=== PATIENT | female | born 1945 | race Caucasian/White ===

== ENCOUNTER 2019-09-01 08:01 | Emergency (ER) | payer MEDICARE, MEDICAID, SELFPAY ==
[2019-09-01 08:03] VITALS: BP 145/86; PULSE 80; RESP 16; TEMP 36.4; O2SAT 97; BMI 24.7
--- NOTE | 2019-09-01 08:11 | ED_ITS ---
Entered by [id number], acting as scribe for Timmy Gonzalez DO Sep 01, 2019 08:01 HPI - Fall General: Chief Complaint: Fall Stated Complaint: FALL, RIGHT RIB PAIN Time Seen by Provider: 09/01/19 08:04 History of Present Illness: Associated symptoms-after fall: Reports chest pain Review of Systems General: Reports: 10 or more systems reviewed and unremarkable except in HPI and below Card: Reports: chest pain Resp: Denies: shortness of breath or productive cough PFSH ED PFSH: Statuses (acute, chronic, etc) shown below reflect problem list status as previously entered and may not be historically accurate Social History Smoking and tobacco status: never smoked Physical Exam Const: COMMON NORMALS: no apparent distress, average body habitus, oriented x3, no limitations, healthy appearing and alert Neck/C-Spine: COMMON NORMALS: no JVD Chest: CHEST: Yes symmetrical chest wall rise, No crepitus and Yes localized rib tenderness with anteroposterior compression Resp: COMMON NORMALS: normal respiratory effort, no retractions and no use of accessory muscles Cardio: COMMON NORMALS: no JVD, regular rate and regular rhythm RATE: regular rate RHYTHM: regular rhythm GI: COMMON NORMALS: normal to inspection, nondistended, normoactive bowel sounds Extremity: COMMON NORMALS: normal to inspection Neuro: COMMON NORMALS: oriented x3 SENSORIUM/ORIENTATION: Yes alert Skin: COMMON NORMALS: no rashes or lesions noted and no wounds GENERAL SKIN EXAM: no rashes or lesions noted Course Vital Signs: Vital signs: Vital Signs Temperature 97.6 F 09/01/19 08:03 Pulse Rate 80 09/01/19 08:03 Respiratory Rate 16 09/01/19 08:03 Blood Pressure 145/86 09/01/19 08:03 Pulse Oximetry 97 09/01/19 08:03 Discharge Plan Discharge Patient Disposition: Home, Self-Care Clinical Impression: Sprain of ribs Qualifiers: Encounter type: initial encounter Qualified Code(s): S23.41XA - Sprain of ribs, initial encounter Condition: Stable Prescriptions: New tramadol 50 mg tablet 50 mg PO Q8H PRN (Reason: pain) Qty: 20 RF: 0 No Action celecoxib 200 mg capsule 200 mg PO BID RF: 0 sertraline 100 mg tablet 100 mg PO DAILY RF: 0 clopidogrel 75 mg tablet 75 mg PO DAILY RF: 0 levothyroxine 25 mcg tablet See Rx Instructions .ROUTE .COMPLEX RF: 0 raloxifene 60 mg tablet 60 mg PO DAILY RF: 0 rosuvastatin 20 mg tablet 20 mg PO DAILY RF: 0 Toviaz 4 mg tablet extended release 24 hr 4 mg PO DAILY RF: 0 Discharge Orders: Discharge Order (Routine); Ordered 09/01/19 Ordered By: Timmy Gonzalez Referrals: Gordo Enciso MD [Family Provider] - Coding Level of Care Code ED 4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
--- NOTE | 2019-09-01 08:17 | XR_ITS ---
WS: [id number] RIBS RIGHT WITH CHEST TECHNIQUE: 3 views of the right ribs with PA chest CLINICAL INFORMATION: fall COMPARISON: None. FINDINGS: Right ribs are normal in appearance. Slight atelectasis right lung base. No visualized right rib frac tures. XR/XR ribs RT mn 3V w CXR1V [id number] IMPRESSION: No visualized right rib fractures.
--- NOTE | 2019-09-01 08:33 | W.ED.FALL ---
HPI - Fall General: Chief Complaint: Fall Stated Complaint: FALL, RIGHT RIB PAIN Time Seen by Provider: 09/01/19 08:04 Review of Systems General: Reports: 10 or more systems reviewed and unremarkable except in HPI and below PFSH ED PFSH: Statuses (acute, chronic, etc) shown below reflect problem list status as previously entered and may not be historically accurate Social History Smoking and tobacco status: never smoked Physical Exam Const: COMMON NORMALS: no apparent distress, oriented x3, no limitations, alert and well nourished Neck/C-Spine: COMMON NORMALS: no JVD Resp: COMMON NORMALS: normal respiratory effort, no retractions and clear to auscultation bilaterally AUSCULTATION: clear to auscultation bilaterally Cardio: COMMON NORMALS: no JVD, regular rate and regular rhythm RATE: regular rate RHYTHM: regular rhythm GI: COMMON NORMALS: normal to inspection, nondistended, normoactive bowel sounds Extremity: COMMON NORMALS: normal to inspection, full ROM and normal capillary refill Neuro: COMMON NORMALS: oriented x3 SENSORIUM/ORIENTATION: Yes alert Skin: COMMON NORMALS: no rashes or lesions noted and no wounds GENERAL SKIN EXAM: no rashes or lesions noted Course Vital Signs: Vital signs: Vital Signs Temperature 97.6 F 09/01/19 08:03 Pulse Rate 80 09/01/19 08:03 Respiratory Rate 16 09/01/19 08:03 Blood Pressure 145/86 09/01/19 08:03 Pulse Oximetry 97 09/01/19 08:03 MDM - Fall Imaging Data^: CXR: My impression: no evidence of rib rx or pneumothorax Discharge Plan Discharge Patient Disposition: Home, Self-Care Clinical Impression: Sprain of ribs Qualifiers: Encounter type: initial encounter Qualified Code(s): S23.41XA - Sprain of ribs, initial encounter Condition: Stable Prescriptions: New tramadol 50 mg tablet 50 mg PO Q8H PRN (Reason: pain) Qty: 20 RF: 0 Discharge Orders: Discharge Order (Routine); Ordered 09/01/19 Ordered By: Timmy Gonzalez Referrals: Gordo Enciso MD [Family Provider] - Coding Level of Care Code ED 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
--- NOTE | 2019-09-01 08:59 | PC.NURSE ---
patient returned from xray
== END 2019-09-01 10:04 | disposition home or self-care (01) ==
PROVIDERS: Emergency Provider Family Medicine; Family Provider Family Medicine
DX: S23.41XA Sprain of ribs, initial encounter (principal); W19.XXXA Unspecified fall, initial encounter
CPT/HCPCS: 71101; 99281; 99283

== ENCOUNTER 2019-09-07 16:24 | Outpatient (CLI) | payer MEDICARE, MEDICAID, SELFPAY ==
--- NOTE | 2019-09-07 | XR_ITS ---
WS: [id number] RIGHT RIBS, MULTIPLE VIEWS WITH PA CHEST HISTORY: RIB PAIN COMPARISON: 09/01/2019 Lungs and mediastinum: Mild pulmonary hyperinflation. Benign granuloma RIGHT lower lobe. No pneumotho rax or pulmonary contusion. Slight blunting of the RIGHT costophrenic angle. Ribs: Indeterminate for an incomplete fracture involving the anterior fourth rib. No healing rib frac tures or callus formation identified. XR/XR ribs RT mn 3V w CXR1V [id number] IMPRESSION: 1. Indeterminate for incomplete fracture involving the anterior fourth rib. Co rrelate with area of pain. 2. No pneumothorax or pulmonary contusion.
== END 2019-09-07 16:25 | disposition home or self-care (01) ==
LOC: RADOUTREAD 09-08 10:02
PROVIDERS: Family Provider Family Medicine; Visit Provider Family Medicine
DX: Z76.89 Persons encountering health services in other specified circumstances (principal)

== ENCOUNTER 2020-07-17 22:54 | Emergency (ER) | payer MEDICARE, MEDICAID, SELFPAY ==
[2020-07-17 22:59] VITALS: BP 130/86; PULSE 81; RESP 18; TEMP 36.4; O2SAT 96; BMI 23.9
--- NOTE | 2020-07-17 23:09 | ECG_ITS ---
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 Measurements Intervals [address] Rate: 78 P: 64 FL: 155 QRS: -40 QRSD: 91 T: 38 QT: 372 QTc: 426 Interpretive Statements SINUS RHYTHM LEFT AXIS DEVIATION [QRS AXIS < -30] Compared to ECG 01/03/2018 18:08:22 Short FL interval no longer present Electronically Signed On 07-18-2020 20:31:36 JEWELRY MECHANIC by Lo Blas M.D. [email or web address] World MobileAnbado Videochillicothe va medical centerASCENDANT MDX/store/[id number] f
--- NOTE | 2020-07-17 23:09 | XRR_ITS ---
PROCEDURE INFORMATION: Exam: XR Chest, 1 View Exam date and time: 07/17/2020 11:45 PM Age: 75 years old Clinical indication: Patient HX: Left sided abd pain, n/v, weakness TECHNIQUE: Imaging protocol: XR of the chest Views: 1 view. COMPARISON: CR XR ribs RT mn 3V w CXR1V [id number] 09/07/2019 4:24 PM FINDINGS: Lungs: Calcified granuloma right lower lung. Pleural space: Unremarkable. No pleural effusion. No pneumothorax. Heart/Mediastinum: Small to moderate hiatal hernia. Stable heart size. Vasculature: Tortuous calcified thoracic aorta. Bones/joints: Unremarkable. XR/XR chest 1V portable [id number] IMPRESSION: Stable chest without acute process.
[2020-07-17 23:28] LABS: Basophils % 0.4 %; Eosinophils # 0.1 10^3/uL (0.0-0.8); Eosinophils % 0.9 %; Hematocrit 48.4 % (37.0-47.0); Hemoglobin 15.5 g/dL (11.5-15.3); Lymphocytes # 1.8 10^3/uL (0.8-4.8); Lymphocytes % 17.5 %; Mean Corpuscular Hemoglobin 31.8 pg (28.0-34.0); Mean Corpuscular Volume 99.4 fL (81-99); Mean Platelet Volume 9.7 fL (7.4-10.4); Monocytes # 0.8 10^3/uL (0.2-0.9); Monocytes % 7.5 %; Neutrophils % 73.6 %; Nucleated Red Blood Cells % 0 %; Platelet Count 251 10^3/cmm (130-400); Red Blood Count 4.87 10^6/uL (4.1-5.3); Red Cell Distribution Width 12.4 % (12.1-15.1); White Blood Count 10.2 10^3/uL (4.0-10.0)
[2020-07-17] MEDS: sodium chloride 0.9% 1,000 ML 999 ML IV (23:28)
--- NOTE | 2020-07-17 23:28 | W.ED.WEAKNES ---
HPI - Weakness General: Chief complaint: Weakness Stated complaint: L SIDE ABD PAIN, N/V Time Seen by Provider: 07/17/20 23:09 History of Present Illness: HPI Narrative: Complains about nausea and vomiting over the last 2 days unable to keep anything down also complains about left lower quadrant pain radiates to the left flank some. Says she feels weak now. Denies fever chills or diarrhea MD Complaint: generalized weakness Onset (ago): hour(s) Duration: constant and progressively worsening Associated symptoms: Reports nausea and vomiting; Denies chest pain, chills, easy bruising, fever(s) or headache(s) Review of Systems Const: Denies: fever(s), chills or body aches Eyes: Denies: change in vision or blurry vision ENMT: Denies: throat pain or nasal congestion Card: Denies: chest pain or dyspnea on exertion Resp: Denies: dyspnea, productive cough or non-productive cough GI: Reports: abdominal pain, nausea and vomiting : Reports: flank pain (Side left) Musc: Denies: extremity pain Skin/Breast: Denies: rash Neuro: Denies: headache(s) Psych: Denies: anxiety or depression Jered/Lymph: Denies: easy bruising PFSH ED PFSH: Social History Smoking and tobacco status: never smoked Physical Exam Const: COMMON NORMALS: no acute distress, average body habitus and patient oriented x3 HENMT: COMMON NORMALS: normocephalic HEAD & SCALP: normal to inspection and normocephalic FACE & SINUS: normal facial exam Eye: COMMON NORMALS: conjunctivae normal GENERAL EYE: appearance normal, both eyes and all related structures CONJUNCTIVA: Yes conjunctivae normal Neck/C-Spine: COMMON NORMALS: no JVD Chest: COMMONS NORMALS: normal inspection of the chest Resp: COMMON NORMALS: normal respiratory effort and clear to auscultation bilaterally AUSCULTATION: clear to auscultation bilaterally Cardio: COMMON NORMALS: no JVD, regular rate and regular rhythm RATE: regular rate RHYTHM: regular rhythm GI: COMMON NORMALS: Normal to inspection, nondistended, normoactive bowel sounds present Extremity: COMMON NORMALS: normal to inspection and full ROM Neuro: COMMON NORMALS: patient oriented x3 Skin: NARRATIVE SKIN EXAM: Turgor is good Course Vital Signs: Vital signs: Vital Signs Temperature 97.5 F L 07/17/20 22:59 Pulse Rate 81 07/17/20 22:59 Respiratory Rate 18 07/17/20 22:59 Blood Pressure 130/86 07/17/20 22:59 Pulse Oximetry 96 07/17/20 22:59 Discharge Plan Discharge Prescriptions: No Action celecoxib 200 mg capsule 200 mg PO BID RF: 0 sertraline 100 mg tablet 100 mg PO DAILY RF: 0 clopidogrel 75 mg tablet 75 mg PO DAILY RF: 0 levothyroxine 25 mcg tablet See Rx Instructions .ROUTE .COMPLEX RF: 0 raloxifene 60 mg tablet 60 mg PO DAILY RF: 0 rosuvastatin 20 mg tablet 20 mg PO DAILY RF: 0 Toviaz 4 mg tablet extended release 24 hr 4 mg PO DAILY RF: 0 tramadol 50 mg tablet 50 mg PO Q8H PRN (Reason: pain) Qty: 20 RF: 0 Coding Level of Care Code ED Zigzag 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
[2020-07-17 23:33] LABS: Add Urine Microscopic? YES; Bilirubin Urine Neg (Negative); Blood Urine 2+ (Negative); Glucose Urine UA Norm (Normal); Ketones Urine Negative (Negative); Leukocyte Esterase Urine 2+ (Negative); Nitrate Urine Negative (Negative); Protein Urine Neg (Negative); Urine Appearance SL Hazy (CLEAR); Urine Color Yellow (Yellow); Urobilinogen Urine Norm (Negative); pH Urine 8 (5-7)
[2020-07-17 23:34] LABS: Sulfosalicylic Acid Urine Negative (Negative)
[2020-07-17] MEDS: ondansetron 2 mg/ML SDV 2 mL 4 MG IVP (23:37)
--- NOTE | 2020-07-17 23:37 | CTR_ITS ---
PROCEDURE INFORMATION: Exam: CT Abdomen And Pelvis Without Contrast Exam date and time: 07/17/2020 12:11 AM Age: 75 years old Clinical indication: Abdominal pain; Left; Prior surgery; Surgery date: 6+ months; Surgery type: C-sect; Patient HX: C/O L flank pain w n/v and hematuria; Additional info: Left flank, llq pain and hematuria TECHNIQUE: Imaging protocol: Computed tomography of the abdomen and pelvis without contrast. Radiation optimization: All CT scans at this facility use at least one of these dose optimization techniques: automated exposure control; mA and/or kV adjustment per patient size (includes targeted exams where dose is matched to clinical indication); or iterative reconstruction. COMPARISON: CT abdomen pelvis w con* [id number] 01/03/2018 10:36 PM RADIATION DOSE METRICS: Total DLP (mGy-cm): 659.36 FINDINGS: Lungs: Mild atelectasis versus fibrosis noted at the lung bases. Calcified granuloma right lung base. Mediastinal space: There is a large hiatal hernia present. Liver: Simple appearing 1.2 cm hepatic cyst. No acute hepatic abnormality. Gallbladder and bile ducts: Small calcified gallstones in the gallbladder. No gallbladder wall thickening or pericholecystic fluid. No biliary dilatation. Pancreas: The pancreas is normal in appearance. No pancreatic duct dilatation. Spleen: Unremarkable. No splenomegaly. Adrenal glands: The adrenal glands appear within normal limits. Kidneys and ureters: Mild left hydroureteronephrosis. There is a 6 mm proximal left ureteral calculus. Findings are consistent with left obstructive uropathy. Cortical scarring noted in the mid right kidney. 5 mm calcification seen near the right cortical scar, which may represent a calculus within a dilated infundibulum versus a cortical calcification. No right hydronephrosis. The right ureter is unremarkable. Stomach and bowel: No acute abnormality of the stomach. Most of the stomach is located within the hiatal hernia. Large volume of retained stool in the ascending colon. No inflammatory changes of the colon. Appendix: Postop changes near the cecum, consistent with appendectomy. Intraperitoneal space: No pneumoperitoneum. No significant fluid collection. Vasculature: The aorta is atherosclerotic. No aortic aneurysm. Lymph nodes: No enlarged lymph nodes. Urinary bladder: The urinary bladder is unremarkable in appearance. Reproductive: The uterus is not visualized, consistent with hysterectomy. Bones/joints: Degenerative spine changes are noted. Soft tissues: Unremarkable. CT/CT kidney stone [id number] IMPRESSION: 1. Mild left hydroureteronephrosis. There is a 6 mm proximal left ureteral calculus. Findings are consistent with left obstructive uropathy. 2. Cortical scarring noted in the mid right kidney. 5 mm calcification seen near the right cortical scar, which may represent a calculus within a dilated infundibulum versus a cortical calcification. No right hydronephrosis. 3. Small calcified gallstones in the gallbladder. No gallbladder wall thickening or pericholecystic fluid. 4. There is a large hiatal hernia present. Radiation Dose CTDIVOL = (mGy): DLP = 659.36 (mGy-cm)
[2020-07-17 23:38] LABS: Add Urine Culture? No; Amorphous Sediment Urine 3+ /hpf; Bacteria Urine TRACE /hpf; WBC Urine 25-40 /hpf (0-5)
[2020-07-17 23:40] VITALS: RESP 16; O2SAT 96
[2020-07-17] MEDS: morphine 4 mg/mL SDV 1 mL 2 MG IVP (23:40)
[2020-07-17 23:48] LABS: Alanine Aminotransferase 18 U/L (0-33); Albumin Level 4.2 g/dL (3.5-5.2); Alkaline Phosphatase 122 IU/L (35-105); Aspartate Amino Transferase 23 U/L (0-32); Blood Urea Nitrogen 10 mg/dL (8-23); Calcium 9.4 mg/dL (8.5-10.5); Carbon Dioxide 28 mmol/L (22-29); Chloride 106 mmol/L (98-107); Globulin 3.1 g/dL (1.3-4.6); Glucose 145 mg/dL (65-115); Lipase 23 U/L (13-60); Osmolality Calculated 300 mOsm/kg (285-295); Sodium 144 mmol/L (136-145); Total Bilirubin 0.4 mg/dL (0.15-1.2); Total Protein 7.3 g/dL (6.6-8.7)
[2020-07-18] MEDS: HYDROcodone-acetaminophen 5-325 mg Tablet 1 TAB PO (00:59)
[2020-07-18 01:00] VITALS: BP 128/87; PULSE 78; RESP 16; O2SAT 97
[2020-07-18] MEDS: ondansetron 4 MG Tablet PO (01:00)
--- NOTE | 2020-07-18 08:50 | DCPLANNER ---
manager industrial had message to schedule a follow up appointment for patient with Dr. Mckenzie. manager industrial called the office of Dr. Mckenzie, spoke with Josephine, gave clinic patients information. manager industrial was told that patients information would be printed and reviewed. Clinic will call patient with appointment information.
--- NOTE | 2020-07-19 10:51 | DCPLANNER ---
Patient has a follow up appointment scheduled for Sunday, July 19, 2020 at 2:[address] Mckenzie. Clinic will call patient with appointment information.
--- NOTE | 2020-08-17 15:06 | DCPLANNER ---
Patient had a follow up appointment scheduled for 07.19.[address] Mckenzie - patient did attend appointment.
== END 2020-07-18 01:01 | disposition home or self-care (01) ==
PROVIDERS: Emergency Provider Nurse Practitioner Family; PCP Family Medicine
DX: R53.1 Weakness (principal)
CPT/HCPCS: 12345; 71045; 74176; 80053; 81001; 83605; 83690; 85025; 93005; 96361; 96374; 96375; 99282; 99283; J2270; J2405; J7030; Q0162

== ENCOUNTER 2020-07-19 12:56 | Outpatient (CLI) | payer MEDICARE, MEDICAID, SELFPAY ==
--- NOTE | 2020-07-19 13:00 | XRR_ITS ---
PROCEDURE INFORMATION: Exam: XR Abdomen, 2 Views Exam date and time: 07/19/2020 1:00 PM Clinical indication: Condition or disease; Other: Stones TECHNIQUE: Imaging protocol: XR of the abdomen. Views: 2 Views. COMPARISON: No relevant prior studies available. FINDINGS: Gastrointestinal tract: bowel gas pattern is nonspecific. Air filled large bowel including distal rectal gas. Moderate amount stool throughout the large bowel. Intraperitoneal space: Normal. No free air. Organs: Calcification projects over the lower pole of the right kidney of approximately 9 mm. Bones/joints: Unremarkable for age. XR/XR KUB [id number] IMPRESSION: 1. Bowel gas pattern is nonspecific. Air filled large bowel including distal rectal gas. Air-filled transverse colon and splenic flexure. 2. Calcification projects over the lower pole of the right kidney of approximately 9 mm. 3. Moderate amount stool throughout the large bowel.
== END 2020-07-19 12:57 | disposition home or self-care (01) ==
LOC: RAD 12:59
PROVIDERS: PCP Family Medicine; Visit Provider Urology
DX: N20.0 Calculus of kidney (principal); N20.1 Calculus of ureter
CPT/HCPCS: 74018; 81003; 87635

== ENCOUNTER 2020-07-21 07:52 | Outpatient (CLI) | payer MEDICARE, MEDICAID, SELFPAY ==
--- NOTE | 2020-07-21 08:04 | XRR_ITS ---
PROCEDURE INFORMATION: Exam: XR Abdomen, 1 View Exam date and time: 07/21/2020 8:22 AM Age: 75 years old Clinical indication: Condition or disease; Kidney or ureter condition; Calculus (stone) in kidney and calculus (stone) in ureter; Prior surgery; Surgery type: Gb, appy, hyst, c section; Additional info: Ureteral stone TECHNIQUE: Imaging protocol: XR of the abdomen. Views: Frontal supine view of the abdomen. 1 View. COMPARISON: CR XR KUB [id number] 07/19/2020 1:06 PM FINDINGS: Gastrointestinal tract: There is a row bennie in the lower pelvis from a bowel anastomosis. The bowel gas pattern is normal with no evidence of obstruction or dilatation. Organs: Multiple stable calcifications project on the right kidney. Bones/joints: Degenerative changes are present in the spine. XR/XR KUB [id number] IMPRESSION: 1. No acute abnormality. 2. Stable right renal calcifications.
== END 2020-07-21 07:53 | disposition home or self-care (01) ==
PROVIDERS: PCP Family Medicine; Visit Provider Urology
DX: N20.1 Calculus of ureter (principal); N20.0 Calculus of kidney
CPT/HCPCS: 74018

== ENCOUNTER 2020-07-21 21:00 | Emergency (ER) | payer MEDICARE, MEDICAID, SELFPAY ==
[2020-07-21 21:03] VITALS: BP 163/111; PULSE 105; RESP 16; TEMP 36.6; O2SAT 96; BMI 23.8
--- NOTE | 2020-07-22 00:06 | W.ED.ABDPA2 ---
HPI - Abdominal Pain General: Chief Complaint: Nausea/Vomiting/Diarrhea Stated Complaint: kidney stones Time Seen by Provider: 07/21/20 23:54 History of Present Illness: HPI narrative: Patient is a 75-year-old female who comes to the ED with abdominal pain and constipation. Patient was seen by Dr. Mckenzie today for an obstructive kidney stone on left side and they have been monitoring it progress. Patient has an appointment with Dr. Mckenzie on Saturday to reevaluate kidney stone and possibly perform some intervention if she cannot pass it. Tonight patient comes in with nausea and vomiting that has lasted for the last 5 days. Patient says she has not had a bowel movement in 5 days. Patient started taking hydrocodone approximately 5 days ago as well. She has not been taking any stool softener or MiraLAX since being on hydrocodone. She was given some magnesium citrate today and drink that and has not had any success with bowel movement. Her abdominal pain is in the left lower quadrant and she says it is episodic and she rates it an 8 out of 10 at its worst, but currently is 3 out of 10. Pain seems to come on every 15 to 30 minutes. Patient says she feels like she needs to have a bowel movement and she would feel better. Associated Symptoms: Reports constipation (5 days), nausea and vomiting; Denies chills, diarrhea, dysuria, fever(s), hematochezia and hematuria Review of Systems Const: Denies: fever(s), chills or fatigue Eyes: Denies: change in vision or eye discomfort ENMT: Denies: throat pain, odynophagia, nasal discharge or nasal congestion Card: Denies: chest pain, palpitations, edema, swelling of feet/ankles, dyspnea on exertion or orthopnea Resp: Denies: dyspnea, productive cough or non-productive cough GI: Reports: abdominal pain, nausea, vomiting and constipation (5 days); Denies: diarrhea or hematochezia : Denies: flank pain, dysuria or hematuria Musc: Denies: neck pain, back pain or extremity swelling Skin/Breast: Denies: rash or new lesions Neuro: Denies: headache(s), numbness in extremities or weakness in extremities PFS ED PFSH: Medical History Depression Surgical History History of Hx of appendectomy Hx of hysterectomy Social History Smoking and tobacco status: never smoked Alcohol intake: never Marital status: Current occupational status: retired Physical Exam Const: COMMON NORMALS: no acute distress, patient oriented x3 and alert GENERAL APPEARANCE: cooperative and comfortable HENMT: COMMON NORMALS: normocephalic HEAD & SCALP: normocephalic MOUTH: Normal oral and palatal mucosa present THROAT: posterior oropharynx normal and uvula midline Eye: COMMON NORMALS: Equal, round and reactive pupils present PUPIL: Yes Equal, round and reactive pupils present Neck/C-Spine: COMMON NORMALS: supple GENERAL: Yes normal visual inspection Resp: COMMON NORMALS: normal respiratory effort, No retractions, No use of accessory muscles and clear to auscultation bilaterally AUSCULTATION: clear to auscultation bilaterally Cardio: COMMON NORMALS: regular rate, regular rhythm, S1 normal heart sound present, S2 normal heart sound present, No gallops present (Cardio), No clicks present (Cardio), No murmurs present (Cardio) and Peripheral pulses 2+ throughout RATE: regular rate RHYTHM: regular rhythm HEART SOUNDS: S1 normal heart sound present and S2 normal heart sound present PERIPHERAL PULSES: Peripheral pulses 2+ throughout GI: COMMON NORMALS: Soft to palpation and no masses INSPECTION: Yes normal to inspection AUSCULTATION: Yes Hypoactive bowel sounds present PALPATION: Yes Soft to palpation and Yes Tenderness to palpation present (GI) Details: LLQ (mild LLQ tenderness) : COMMON NORMALS: Yes no CVA tenderness BLADDER/KIDNEY EXAM: Yes no CVA tenderness Back/Pelvis: COMMON NORMALS: no CVA tenderness Extremity: COMMON NORMALS: normal to inspection and no pedal edema Neuro: COMMON NORMALS: patient oriented x3 SENSORIUM/ORIENTATION: Yes alert GAIT: Yes Normal gait present Skin: GENERAL SKIN EXAM: dry skin Course Vital Signs: Vital signs: Vital Signs Temperature 97.8 F 07/21/20 21:03 Pulse Rate 105 H 07/21/20 21:03 Respiratory Rate 16 07/21/20 21:03 Blood Pressure 163/111 07/21/20 21:03 Pulse Oximetry 96 07/21/20 21:03 MDM - Abdominal Pain MDM Narrative: Medical decision making narrative: Patient is a 75-year-old female comes to the ED with constipation, abdominal pain and nausea. Patient also currently has a kidney stone on the left side that Dr. Mckenzie has been following and saw today on July 21 and has an appointment with her on Saturday to reevaluate stone and possible intervention to get it removed. Patient says she has not had a bowel movement in 5 days and needs states that she has been taking hydrocodone's for the last 5 days and has not been taking any stool softeners or MiraLAX. She has episodic abdominal cramping pain particularly in the left lower quadrant. Reviewing the [facility] x-rays from July 21 and July 19 patient had no fecal impaction but does appear to have a moderate amount of stool in the colon. CBC and CMP were unremarkable. Patient was given an enema while here in the ED and then she was discharged. She was sent home on a prescription for Zofran, stool softener and MiraLAX. Return to ED precautions given. Patient has follow-up with Dr. Mckenzie on Saturday morning July 25. Drink plenty of fluids and stay hydrated. Patient understood agree with plan. Medical Records: Attestation: I reviewed the patient's medical records. Medical records narrative: I reviewed the [facility]UB x-rays from earlier today July 21 and July 19. No fecal impaction seen. There was quite a bit of stool seen in the colon. Lab Data: Attestation: I reviewed the patient's lab results. Labs: Lab Results 07/22/20 07/22/20 Range/Units 00:17 00:17 WBC 10.9 H (4.0-10.0) 10^3/ uL RBC 4.55 (4.1-5.3) 10^6/u L Hgb 14.6 (11.5-15.3) g/dL Hct 44.4 (37.0-47.0) % MCV 97.6 (81-99) fL MCH 32.1 (28.0-34.0) pg MCHC 32.9 (30.0-36.0) g/dL RDW 12.4 (12.1-15.1) % Plt Count 219 (130-400) 10^3/c mm MPV 10.0 (7.4-10.4) fL Neut % (Auto) 81.0 % Lymph % (Auto) 10.1 % [place] % (Auto) 7.9 % Eos % (Auto) 0.4 % Baso % (Auto) 0.4 % Neut # (Auto) 8.83 H (1.8-7.7) 10^3/u L Lymph # (Auto) 1.1 (0.8-4.8) 10^3/u L [place] # (Auto) 0.9 (0.2-0.9) 10^3/u L Eos # (Auto) 0.0 (0.0-0.8) 10^3/u L Baso # (Auto) 0.0 (0.0-0.1) 10^3/u L Nucleated RBC % (a uto) 0 % Nucleated RBCs # 0.0 /100WBC Sodium 139 (136-145) mmol/L Potassium 4.4 (3.5-5.1) mmol/L Chloride 100 (98-107) mmol/L Carbon Dioxide 26 (22-29) mmol/L Anion Gap 17.4 (5-19) BUN 14 (8-23) mg/dL Creatinine 0.9 (0.5-0.9) mg/dL GFR Calculation Not Reportable Glucose 95 (65-115) mg/dL Calculated Osmolal ity 288 (285-295) mOsm/k g Calcium 9.4 (8.5-10.5) mg/dL Total Bilirubin 0.5 (0.15-1.2) mg/dL AST 22 (0-32) U/L ALT 14 (0-33) U/L Alkaline Phosphata se 108 H (35-105) IU/L Total Protein 7.1 (6.6-8.7) g/dL Albumin 4.0 (3.5-5.2) g/dL Globulin 3.1 (1.3-4.6) g/dL Lipase 13 (13-60) U/L Discharge Plan Discharge Patient Disposition: Home Clinical Impression: Constipation Qualifiers: Constipation type: drug induced constipation Qualified Code(s): K59.03 - Drug induced constipation Condition: Stable Prescriptions: New docusate sodium 100 mg capsule 100 mg PO TID Qty: 21 RF: 0 ondansetron 4 mg tablet,disintegrating 4 mg PO Q8H Qty: 15 RF: 0 Miralax 17 gram/dose powder 17 g PO DAILY PRN (Reason: constipation) Qty: 119 RF: 0 No Action celecoxib 200 mg capsule 200 mg PO BID RF: 0 sertraline 100 mg tablet 100 mg PO DAILY RF: 0 clopidogrel 75 mg tablet 75 mg PO DAILY RF: 0 levothyroxine 25 mcg tablet See Rx Instructions .ROUTE .COMPLEX RF: 0 raloxifene 60 mg tablet 60 mg PO DAILY RF: 0 rosuvastatin 20 mg tablet 20 mg PO DAILY RF: 0 Toviaz 4 mg tablet extended release 24 hr 4 mg PO DAILY RF: 0 hydrocodone-acetaminophen 5-325 mg tablet 1 tab PO TID PRN (Reason: pain) Qty: 10 RF: 0 Discharge Orders: Discharge ED (Routine); Ordered 07/22/20 Ordered By: Piero Johnson Referrals: Gordo Enciso MD [Primary Care Provider] - Discharge Diet: Regular Discharge Activity: Resume usual activity Patient Instructions: Constipation - Adult, High Fiber Diet (ED) Activity Restrictions/Additional Instructions: Follow-up with medical provider at your next previously scheduled appointment. Drink plenty of fluids and stay hydrated. Take medications as prescribed. Return to the ER or your medical provider if condition worsens. Please read and understand discharge instructions. If any questions, please ask. Coding Level of Care Code ED Buffer Inflated Pad for Jud Fwd Exam Comprehensive
[2020-07-22] MEDS: ondansetron 2 mg/ML SDV 2 mL 4 MG IVP ×2 (00:25→03:08)
[2020-07-22] MEDS: sodium chloride 0.9% 500 ML 999 ML IV (00:25)
[2020-07-22] MEDS: morphine 4 mg/mL SDV 1 mL IVP (00:25)
[2020-07-22 00:40] LABS: Basophils % 0.4 %; Eosinophils % 0.4 %; Hematocrit 44.4 % (37.0-47.0); Hemoglobin 14.6 g/dL (11.5-15.3); Lymphocytes # 1.1 10^3/uL (0.8-4.8); Lymphocytes % 10.1 %; Mean Corpuscular HGB Conc 32.9 g/dL (30.0-36.0); Mean Corpuscular Hemoglobin 32.1 pg (28.0-34.0); Mean Corpuscular Volume 97.6 fL (81-99); Monocytes # 0.9 10^3/uL (0.2-0.9); Monocytes % 7.9 %; Neutrophils # 8.83 10^3/uL (1.8-7.7); Nucleated Red Blood Cells % 0 %; Platelet Count 219 10^3/cmm (130-400); Red Blood Count 4.55 10^6/uL (4.1-5.3); Red Cell Distribution Width 12.4 % (12.1-15.1); White Blood Count 10.9 10^3/uL (4.0-10.0)
[2020-07-22 00:58] LABS: Alanine Aminotransferase 14 U/L (0-33); Alkaline Phosphatase 108 IU/L (35-105); Anion Gap 17.4 (5-19); Aspartate Amino Transferase 22 U/L (0-32); Blood Urea Nitrogen 14 mg/dL (8-23); Calcium 9.4 mg/dL (8.5-10.5); Carbon Dioxide 26 mmol/L (22-29); Chloride 100 mmol/L (98-107); Globulin 3.1 g/dL (1.3-4.6); Glucose 95 mg/dL (65-115); Lipase 13 U/L (13-60); Osmolality Calculated 288 mOsm/kg (285-295); Potassium 4.4 mmol/L (3.5-5.1); Sodium 139 mmol/L (136-145); Total Bilirubin 0.5 mg/dL (0.15-1.2); Total Protein 7.1 g/dL (6.6-8.7)
[2020-07-22] MEDS: morphine 4 mg/mL SDV 1 mL 2 MG IVP (02:35)
[2020-07-22 03:10] VITALS: BP 132/76; PULSE 78; RESP 16; O2SAT 99
== END 2020-07-22 03:12 | disposition home or self-care (01) ==
PROVIDERS: Emergency Medicine; Emergency Provider Physician Assistant; PCP Family Medicine
DX: K59.03 Drug induced constipation (principal); Z79.02 Long term (current) use of antithrombotics/antiplatelets
CPT/HCPCS: 12345; 80053; 83690; 85025; 96374; 96375; 96376; 99281; 99283; J2270; J2405; J7040

== ENCOUNTER 2020-07-25 09:43 | Outpatient (CLI) | payer MEDICARE, MEDICAID, SELFPAY ==
--- NOTE | 2020-07-25 09:52 | XRR_ITS ---
PROCEDURE INFORMATION: Exam: XR Abdomen, 1 View Exam date and time: 07/25/2020 9:55 AM Age: 75 years old Clinical indication: Condition or disease; Kidney or ureter condition; Calculus (stone) in ureter; Prior surgery; Surgery date: 6+ months; Surgery type: , appy, total hyst; Patient HX: Ureteral stone x 2 weeks; Additional info: Ureteral calculus TECHNIQUE: Imaging protocol: XR of the abdomen. Views: Frontal supine view of the abdomen. 1 View. COMPARISON: CR XR KUB [id number] 07/21/2020 8:32 AM FINDINGS: Gastrointestinal tract: There is a row bennie in a rectosigmoid anastomosis. Intraperitoneal space: There are several other rounded calcific densities in the abdomen which are mole bile and have moved since previous study. They probably represent medication is in the got. No other renal calcifications are seen. Organs: There is stable small calcifications projecting on the lower pole right kidney. Bones/joints: There is mild lumbar scoliosis. DJD is present throughout the lumbar spine with disc space narrowing sclerosis and osteophytes. XR/XR KUB [id number] IMPRESSION: 1. Stable right nephrolithiasis. 2. No acute abnormality.
== END 2020-07-25 09:44 | disposition home or self-care (01) ==
PROVIDERS: PCP Family Medicine; Visit Provider Urology
DX: N20.1 Calculus of ureter (principal); N20.0 Calculus of kidney
CPT/HCPCS: 74018; 81003

== ENCOUNTER 2020-08-05 07:38 | Outpatient (CLI) | payer OTHER, MEDICAID, SELFPAY ==
--- NOTE | 2020-08-05 08:00 | XR_ITS ---
WS: [id number] KUB, 08/05/2020 Clinical Data: RENAL COLIC Comparison: KUB, 07/25/2020. Findings: There are calcifications overlying the right kidney. Much of the right kidney is obscured by colon ga s and fecal material. The left kidney is obscured by colon gas and fecal material. There are surgical bennie overlying the true pelvis. No abnormal pelvic calcifications are seen. There are no abnormal intra-abdominal masses. XR/XR KUB [id number] Impression: No change in right renal calcifications.
== END 2020-08-05 07:39 | disposition home or self-care (01) ==
LOC: RAD 07:41
PROVIDERS: PCP Family Medicine; Visit Provider Nurse Practitioner Family
DX: N23 Unspecified renal colic (principal)
CPT/HCPCS: 74018; 81003

== ENCOUNTER 2020-08-18 09:28 | Outpatient (CLI) | payer MEDICARE, MEDICAID, SELFPAY ==
--- NOTE | 2020-08-18 09:15 | XR_ITS ---
WS: [id number] KUB, AP supine, 08/18/2020 Clinical Data: STONES Comparison: KUB, 08/05/2020. Findings: The calcifications overlying the midportion right kidney are in the same position. There are surgical bennie in the true pelvis. No other calcifications are seen. There is a large amount of fecal material in colon gas obscuring detail over the kidneys. XR/XR KUB [id number] Impression: No change in right renal calcifications.
== END 2020-08-18 09:29 | disposition home or self-care (01) ==
PROVIDERS: PCP Family Medicine; Visit Provider Urology
DX: N20.0 Calculus of kidney (principal)
CPT/HCPCS: 74018; 81003

== ENCOUNTER 2021-02-26 04:54 | Outpatient (CLI) | payer MEDICARE, MEDICAID, SELFPAY ==
[2021-02-26 08:00] VITALS: BP 127/78; PULSE 76; RESP 18; TEMP 36.4; O2SAT 97
[2021-02-26 08:04] VITALS: BMI 24.7
[2021-02-26 09:55] VITALS: BP 144/87; PULSE 72; RESP 18; TEMP 36.6; O2SAT 96
[2021-02-26 10:55] VITALS: BP 144/87; PULSE 72; RESP 18; TEMP 36.6; O2SAT 96
--- NOTE | 2021-02-26 10:55 | PC.NURSE ---
DC'd to home , ambulatory to POV with zero difficulties
== END 2021-02-26 04:55 | disposition home or self-care (01) ==
PROVIDERS: PCP Family Medicine; Visit Provider Nurse Practitioner Family
DX: U07.1 COVID-19 (principal)
CPT/HCPCS: 96365

== ENCOUNTER 2021-09-27 15:21 | Inpatient (IN) | payer MEDICARE, MEDICAID, SELFPAY ==
[2021-09-27 16:11] VITALS: BP 122/73; PULSE 108; RESP 20; TEMP 36.8; O2SAT 88; BMI 23.9
--- NOTE | 2021-09-27 16:29 | XRR_ITS ---
PROCEDURE INFORMATION: Exam: XR Chest Exam date and time: 09/27/2021 4:29 PM Age: 76 years old Clinical indication: Shortness of breath; Patient HX: History--sob and cough for 2 days; Additional info: SOB, hypoxia TECHNIQUE: Imaging protocol: XR of the chest. Views: 1 view. COMPARISON: CR XR chest 1V portable [id number] 07/17/2020 11:36 PM FINDINGS: Lungs: Since the prior exam there is a new right upper lobe hazy infiltrate which could represent pneumonia. However there is also right hilar hazy opacity which is not as typical for a pneumonia and would raise the possibility of adenopathy. Pleural spaces: Unremarkable. No pleural effusion. No pneumothorax. Heart/Mediastinum: See Lungs finding. Bones/joints: Unremarkable. Soft tissues: There is a chronic hiatus hernia measuring 6.8 cm. XR/XR chest 1V portable [id number] IMPRESSION: Right hilar enlargement and new right upper lobe hazy opacity. Although this may represent pneumonia, a lung mass with adenopathy is also consideration. Consider chest CT or short-term follow-up.
--- NOTE | 2021-09-27 16:49 | W.ED.SOB ---
HPI - SOB/Dyspnea General: Chief Complaint: Shortness of Breath/Dyspnea Stated Complaint: Very sick, flu positive Time Seen by Provider: 09/27/21 16:42 History of Present Illness: HPI Narrative: Ms. Handley is a 76-year-old lady with history of thyroid disorder and reported recent confirmed flu diagnosis who presents emergency department due to generalized symptoms. She reports symptoms started approximately 1 week ago initially mild with generalized malaise. She has had subjective hot and cold feeling, shortness of breath, cough, nausea, generalized aches and pains. Symptoms have been worsening and are now severe. She feels dehydrated and has had limited p.o. intake. No other specific changes in health, exacerbating, or relieving factors identified. Onset (ago): week(s) Timing: progressively worsening Severity: severe Exacerbating factors: exertion Relieving factors: nothing Known history of: other Associated symptoms: Reports chest congestion, cough, myalgias, nausea and vomiting Review of Systems General: Reports: 10 or more systems reviewed and unremarkable except in HPI and below Resp: Reports: chest congestion GI: Reports: nausea and vomiting [facility] PFSH: Medical History Depression Surgical History History of Hx of appendectomy Hx of hysterectomy Family History Mother CAD (coronary artery disease) Father CAD (coronary artery disease) Family/Other Cancer FAMILY HISTORY OF BRCA GENE MUTATION (Z84.81 Social History Smoking and tobacco status: never smoked Alcohol intake: never Marital status: Current occupational status: retired Physical Exam Const: COMMON NORMALS: alert GENERAL APPEARANCE: cooperative, well developed and ill appearing HENMT: COMMON NORMALS: normocephalic and atraumatic HEAD & SCALP: normocephalic and atraumatic THROAT: posterior oropharynx normal Eye: COMMON NORMALS: conjunctivae normal CONJUNCTIVA: Yes conjunctivae normal SCLERA: sclerae normal Neck/C-Spine: COMMON NORMALS: supple GENERAL: Yes trachea midline Resp: EFFORT & INSPECTION: Yes tachypneic AUSCULTATION: rhonchi lower bilaterally Cardio: COMMON NORMALS: regular rate and regular rhythm RATE: regular rate RHYTHM: regular rhythm GI: COMMON NORMALS: Soft to palpation PALPATION: Yes Soft to palpation and No Tenderness to palpation present (GI) PERCUSSION: normal to percussion Extremity: GENERAL: Yes normal exam except as noted and No edema Neuro: COMMON NORMALS: moves all extremities SENSORIUM/ORIENTATION: Yes alert and No Orientation impaired Psych: COMMON NORMALS: mental status grossly normal and Normal thought process present THOUGHT PROCESS: Normal thought process present Course ED course: - Patient was seen and evaluated by me at bedside - Patient placed on cardiac monitors, IV access obtained - Initial evaluation notable for exam as above, ill appearing -Fluids given - Labs notable for leukocytosis. Metabolic panel with evidence of dehydration. Delta troponin negative. - Imaging notable for right hilar enlargement in the right upper lobe is opacity. - Given lab and imaging findings, patient does have positive outside flu test, however I do believe that the patient has superimposed bacterial infection. - Upon serial reexamination after treatment the patient was only minimally improved and requiring oxygen - Based on patient history, evaluation, labs, and imaging as interpreted the most likely cause of the patient's condition is flu and bacterial pneumonia - The results of ED evaluation were discussed with the patient including plan for admission due to requirement for level of care not available if discharged to prevent significant worsening/deterioration. - Hospitalist service contacted and agreed admit the patient - Patient was admitted without further deterioration or significant events. Note: Click bubbles or prepopulated curtis in note writing are used for assistance with data collection and billing and are inherently more limited than narrative and other text portions of this note. Please use narrative for additional clinical history and defer to narrative/free test for any case of contradictory information. If information appears in only free text or click bubble it should be considered present or absent as reported. Please contact note health technical writer for clarifications of clinical information or contradictory information. MDM is a brief summary, contradictory or erroneous seeming information should be clarified and full note should be reviewed. Vital Signs: Vital signs: Vital Signs Temperature 98.7 F 09/30/21 13:27 Pulse Rate 84 09/30/21 13:27 Respiratory Rate 16 09/30/21 13:27 Blood Pressure 150/84 09/30/21 13:27 Pulse Oximetry 98 09/30/21 13:27 MDM - SOB/Dyspnea Medical Decision Making 76-year-old lady with known history of flu presenting with 1 week of worsening symptoms. Patient found to have superimposed bacterial pneumonia and new oxygen requirement requiring inpatient management and IV antibiotics. Medical Records I reviewed the patient's medical records. Lab Data I reviewed the patient's lab results. : 09/30/21 05:00 09/30/21 05:00 Labs/Radiology: Radiology Impressions Chest X-Ray 09/27/21 16:29 IMPRESSION: Right hilar enlargement and new right upper lobe hazy opacity. Although this may represent pneumonia, a lung mass with adenopathy is also consideration. Consider chest CT or short-term follow-up. Chest CT 09/27/21 22:33 IMPRESSION: 1. Multilobar pneumonia. Consider follow-up until resolution to exclude underlying neoplasm. 2. Right hilar lymphadenopathy and borderline prominent mediastinal lymph nodes. 3. Moderate-sized hiatal hernia. 4. A simple appearing hepatic cyst. Laboratory Results WBC 16.5 10^3/uL (4.0-10.0) H 09/27/21 17:34 RBC 4.27 10^6/uL (4.1-5.3) 09/27/21 17:34 Hgb 13.4 g/dL (11.5-15.3) 09/27/21 17:34 Hct 40.1 % (37.0-47.0) 09/27/21 17:34 MCV 93.9 fl (81-99) 09/27/21 17:34 MCH 31.4 pg (28.0-34.0) 09/27/21 17:34 MCHC 33.4 g/dL (30.0-36.0) 09/27/21 17:34 RDW 12.2 % (12.1-15.1) 09/27/21 17:34 Plt Count 190 10^3/cmm (130-400) 09/27/21 17:34 MPV 10.8 fL (7.4-10.4) H 09/27/21 17:34 Neut % (Auto) 88.6 % 09/27/21 17:34 Lymph % (Auto) 3.2 % 09/27/21 17:34 [place] % (Auto) 7.2 % 09/27/21 17:34 Eos % (Auto) 0.0 % 09/27/21 17:34 Baso % (Auto) 0.4 % 09/27/21 17:34 Neut # (Auto) 14.60 10^3/uL (1.8-7.7) H 09/27/21 17:34 Lymph # (Auto) 0.5 10^3/uL (0.8-4.8) L 09/27/21 17:34 [place] # (Auto) 1.2 10^3/uL (0.2-0.9) H 09/27/21 17:34 Eos # (Auto) 0.0 10^3/uL (0.0-0.8) 09/27/21 17:34 Baso # (Auto) 0.1 10^3/uL (0.0-0.1) 09/27/21 17:34 Nucleated RBC % (auto) 0 % 09/27/21 17:34 Nucleated RBCs # 0.0 /100WBC 09/27/21 17:34 Specimen Type Arterial 09/27/21 17:38 Sample Site Brachial, left 09/27/21 17:38 ABG pH 7.56 (7.35-7.45) H 09/27/21 17:38 ABG pCO2 24.7 mmHg (35-45) L 09/27/21 17:38 ABG pO2 58.1 mmHg (80.0-100.0) L 09/27/21 17:38 ABG HCO3 22.3 mmol/L (22-26) 09/27/21 17:38 ABG Base Excess 1.5 mmol/L (-2.0-2.0) 09/27/21 17:38 Ger Test Pos 09/27/21 17:38 Hematocrit 41.0 % (37-47) 09/27/21 17:38 O2 Delivery Device Nc 09/27/21 17:38 FiO2 28.0 % 09/27/21 17:38 Web Assistant ID Cak 09/27/21 17:38 Sodium 132 mmol/L (136-145) L 09/27/21 17:34 Potassium 3.8 mmol/L (3.5-5.1) 09/27/21 17:34 Chloride 95 mmol/L (98-107) L 09/27/21 17:34 Carbon Dioxide 20 mmol/L (22-29) L 09/27/21 17:34 Anion Gap 20.8 (5-19) H 09/27/21 17:34 BUN 13 mg/dL (8-23) 09/27/21 17:34 Creatinine 0.6 mg/dL (0.5-0.9) 09/27/21 17:34 GFR Calculation Not Reportable 09/27/21 17:34 Glucose 116 mg/dL (65-115) H 09/27/21 17:34 Calculated Osmolality 275 mOsm/kg (285-295) L 09/27/21 17:34 Lactic Acid 1.5 mmol/L (0.5-2.2) 09/27/21 17:44 Calcium 8.9 mg/dL (8.5-10.5) 09/27/21 17:34 Total Bilirubin 0.7 mg/dL (0.15-1.2) 09/27/21 17:34 AST 31 U/L (0-32) 09/27/21 17:34 ALT 16 U/L (0-33) 09/27/21 17:34 Alkaline Phosphatase 99 IU/L (35-105) 09/27/21 17:34 Troponin T Baseline 17 ng/L (0-10) H 09/27/21 17:34 Troponin T 120 Minute 14.98 ng/L (0-10) H 09/27/21 19:49 Delta Troponin T -2.02 ABS# (0-10) L 09/27/21 19:49 C-Reactive Protein 307.2 mg/L (0.0-4.9) H 09/27/21 17:34 NT-Pro-B Natriuret Pep 579 pg/mL (0-125) H 09/27/21 17:34 Total Protein 6.7 g/dL (6.6-8.7) 09/27/21 17:34 Albumin 3.4 g/dL (3.5-5.2) L 09/27/21 17:34 Globulin 3.3 g/dL (1.3-4.6) 09/27/21 17:34 Procalcitonin 0.77 ng/mL (0-0.5) H 09/27/21 17:34 TSH 1.65 uIU/mL (0.27-4.20) 09/27/21 17:34 Urine Color Yellow (Yellow) 09/27/21 17:00 Urine Appearance Clear (CLEAR) 09/27/21 17:00 Urine pH 5 (5-7) 09/27/21 17:00 Ur Specific [place] 1.010 (1.005-1.030) 09/27/21 17:00 Urine Protein 1+ (Negative) H 09/27/21 17:00 Urine Glucose (UA) Norm (Normal) 09/27/21 17:00 Urine Ketones 1+ (Negative) H 09/27/21 17:00 Urine Blood Neg (Negative) 09/27/21 17:00 Urine Nitrate Negative (Negative) 09/27/21 17:00 Urine Bilirubin 1+ (Negative) H 09/27/21 17:00 Urine Urobilinogen Neg mg/dL (Negative) 09/27/21 17:00 Ur Leukocyte Esterase Trace (Negative) H 09/27/21 17:00 Urine RBC Rare /hpf (0-2) 09/27/21 17:00 Urine WBC 0-4 /hpf (0-5) H 09/27/21 17:00 Ur Squamous Epith Cells 0-4 /hpf (0-5) H 09/27/21 17:00 Amorphous Sediment 1+ /hpf 09/27/21 17:00 Urine Bacteria 1+ /hpf (NONE) H 09/27/21 17:00 Fine Granular Casts 0-4 /lpf H 09/27/21 17:00 SARS-CoV-2 Ag (Rapid) Negative (Negative) 09/27/21 17:28 EKG Data EKG 2: I personally reviewed and interpreted this EKG as follows: EKG Interpretation Date: 09/27/21 EKG interpretation time: 21:05 Interpretation: Twelve-lead EKG shows a regular rhythm at a rate of 100. IL interval 144, QRS duration 89, QTc 382. Left axis deviation. Interpretation: Sinus tachycardia. PAC. EKG 1: I personally reviewed and interpreted this EKG as follows: EKG Interpretation Date: 09/27/21 EKG interpretation time: 17:35 Interpretation: Twelve-lead EKG shows a regular rhythm at a rate of 101. IL interval 141, QRS duration 90, QTc 371. Left axis deviation. Interpretation: Sinus tachycardia. Discharge Plan Discharge Patient Disposition: Placed in Observation Admit Provider: Andressa Rinaldi Clinical Impression: Bacterial pneumonia, Flu, Hypoxemia Discharge Diet: Regular Discharge Activity: Increase activity as tolerated Coding Level of Care Code ED Supervisor Fleshing for Chg Fwd Exam Comprehensive
--- NOTE | 2021-09-27 17:01 | ECG_ITS ---
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 Measurements Intervals [place] Rate: 101 P: 72 HI: 141 QRS: -46 QRSD: 90 T: 60 QT: 313 QTc: 406 Interpretive Statements SINUS TACHYCARDIA LEFT ANTERIOR FASCICULAR BLOCK [QRS AXIS <= -45, QR IN I, RS IN II] Compared to ECG 07/17/2020 23:21:08 Left anterior fascicular block now present Sinus rhythm no longer present Left-axis deviation no longer present Electronically Signed On 09-27-2021 20:21:33 RESIDENCE HALL DIRECTOR by Jeffery Thomas M.D. [email or web address]
[2021-09-27 17:49] LABS: ABG PCO2 24.7 mmHg (35-45); ABG PH Result 7.56 (7.35-7.45); Base Excess ABG 1.5 mmol/L (-2.0-2.0); Blood Gas Allen Test Pos; Blood Gas Operator Identificat CAK; Blood Gas Sample Site Brachial, left; Blood Gas Sample Type Arterial; HCO3 ABG 22.3 mmol/L (22-26); Oxygen Device NC; PO2 ABG 58.1 mmHg (80.0-100.0)
[2021-09-27 17:51] LABS: Basophils # 0.1 10^3/uL (0.0-0.1); Basophils % 0.4 %; Hematocrit 40.1 % (37.0-47.0); Hemoglobin 13.4 g/dL (11.5-15.3); Lymphocytes # 0.5 10^3/uL (0.8-4.8); Lymphocytes % 3.2 %; Mean Corpuscular HGB Conc 33.4 g/dL (30.0-36.0); Mean Corpuscular Hemoglobin 31.4 pg (28.0-34.0); Mean Corpuscular Volume 93.9 fl (81-99); Mean Platelet Volume 10.8 fL (7.4-10.4); Monocytes # 1.2 10^3/uL (0.2-0.9); Monocytes % 7.2 %; Neutrophils % 88.6 %; Nucleated Red Blood Cells % 0 %; Platelet Count 190 10^3/cmm (130-400); Red Blood Count 4.27 10^6/uL (4.1-5.3); Red Cell Distribution Width 12.2 % (12.1-15.1); White Blood Count 16.5 10^3/uL (4.0-10.0)
[2021-09-27] MEDS: sodium chloride 0.9% 1,000 ML 999 ML IV (18:12)
[2021-09-27 18:13] LABS: Troponin(5th) Baseline 17 ng/L (0-10)
[2021-09-27 18:16] LABS: Lactic Sepsis W/Reflex 1.5 mmol/L (0.5-2.2)
[2021-09-27 18:16] LABS: SARS Covid-2 Antigen Negative (Negative)
[2021-09-27 18:19] LABS: Alanine Aminotransferase 16 U/L (0-33); Albumin Level 3.4 g/dL (3.5-5.2); Alkaline Phosphatase 99 IU/L (35-105); Anion Gap 20.8 (5-19); Aspartate Amino Transferase 31 U/L (0-32); Blood Urea Nitrogen 13 mg/dL (8-23); Calcium 8.9 mg/dL (8.5-10.5); Carbon Dioxide 20 mmol/L (22-29); Chloride 95 mmol/L (98-107); Globulin 3.3 g/dL (1.3-4.6); Glucose 116 mg/dL (65-115); Osmolality Calculated 275 mOsm/kg (285-295); Potassium 3.8 mmol/L (3.5-5.1); Sodium 132 mmol/L (136-145); Thyroid Stimulating Hormone 1.65 uIU/mL (0.27-4.20); Total Bilirubin 0.7 mg/dL (0.15-1.2); Total Protein 6.7 g/dL (6.6-8.7)
[2021-09-27 19:13] LABS: NT Pro B Type Natriuretic Pept 579 pg/mL (0-125); Procalcitonin 0.77 ng/mL (0-0.5)
[2021-09-27 19:27] LABS: C Reactive Protein 307.2 mg/L (0.0-4.9)
[2021-09-27] MEDS: cefTRIAXone 1,000 MG in sodium chloride 0.9% (plus) 50 ML 100 MG IV (19:33)
[2021-09-27 19:46] VITALS: BP 190/78; PULSE 96; RESP 16; O2SAT 93
[2021-09-27] MEDS: doxycycline 100 MG in sodium chloride 0.9% (plus) 100 ML IV (19:52)
[2021-09-27 20:57] LABS: Troponin 5 2HR 14.98 ng/L (0-10)
[2021-09-27 20:58] LABS: Troponin 5 2HR Delta -2.02 ABS# (0-10)
--- NOTE | 2021-09-27 21:02 | PM.HP ---
Providers/Chief Complaint Primary Care Provider: Gordo Enciso MD Chief Complaint: Very sick, flu positive History of Present Illness The patient is a 76-year-old female who presents with chief complaint of feeling unwell as of approximate 1.5 weeks prior to presenting to the emergency department. The patient is a fair historian at best. She admits to nausea, vomiting, cough which is nonproductive, wheeze, diarrhea, dyspnea, dysgeusia. She denies fever, rigors, abdominal pain, myalgia, chest pain, peripheral edema, a no dyspnea. The patient Cates that she was diagnosed with influenza possibly 2 days prior to hospitalization and it does not appear as though she was started on Tamiflu. She presents for further evaluation Medications/Allergies Home Medications Medication Instructions Recorded Confirmed Last Taken Type celecoxib 200 mg capsule 200 mg PO BID 09/01/19 08/18/20 08/31/19 History clopidogrel 75 mg tablet 75 mg PO DAILY 09/01/19 08/18/20 08/31/19 History fesoterodine 4 mg tablet,extended 4 mg PO DAILY 09/01/19 08/18/20 08/31/19 History release 24 hr (Toviaz) levothyroxine 25 mcg tablet See Rx Instructions .ROUTE .COMPLEX 09/01/19 08/18/20 08/31/19 History raloxifene 60 mg tablet 60 mg PO DAILY 09/01/19 08/18/20 08/31/19 History rosuvastatin 20 mg tablet 20 mg PO DAILY 09/01/19 08/18/20 08/31/19 History sertraline 100 mg tablet 100 mg PO DAILY 09/01/19 08/18/20 08/31/19 History hydrocodone 5 mg-acetaminophen 325 1 tab PO TID PRN #10 tab 07/18/20 08/18/20 Unknown Rx mg tablet docusate sodium 100 mg capsule 100 mg PO TID #21 cap 07/22/20 08/18/20 Unknown Rx ondansetron 4 mg disintegrating 4 mg PO Q8H #15 tab 07/22/20 08/18/20 Unknown Rx tablet polyethylene glycol 3350 17 17 g PO DAILY PRN #119 g 07/22/20 08/18/20 Unknown Rx gram/dose oral powder (Miralax) Allergies Allergy/AdvReac Type Severity Reaction Status Date / Time codeine Allergy ADR-Drowsy Verified 08/05/20 08:54 PFSH Acute PFSH: Medical History Depression Surgical History History of Hx of appendectomy Hx of hysterectomy Family History Mother CAD (coronary artery disease) Father CAD (coronary artery disease) Family/Other Cancer FAMILY HISTORY OF BRCA GENE MUTATION (Z84.81 Social History Smoking and tobacco status: never smoked Alcohol intake: never Marital status: Current occupational status: retired Vitals/I&O/Wt Last Vital Signs Temp 98.2 F 09/27/21 16:11 Pulse 96 09/27/21 19:46 Resp 16 09/27/21 19:46 BP 190/78 09/27/21 19:46 Pulse Ox 93 09/27/21 19:46 09/27/21 09/27/21 09/27/21 06:59 14:59 22:59 Intake Total 1150 / 1150 Balance 1150 / 1150 Weight last 48 hrs Weight 61.235 kg Physical Exam Const: COMMON NORMALS: no acute distress, average body habitus, patient oriented x3, no limitations, healthy appearing, alert and well nourished HENMT: COMMON NORMALS: normocephalic, atraumatic, hearing grossly normal bilaterally, external ears normal, EAC's normal, TM's normal bilaterally, Normal external nose present, Normal nasal mucous membranes and turbinates present, moist oral mucous membranes, oropharynx normal, dentition normal and gingiva normal HEAD & SCALP: normal to inspection FACE & SINUS: normal facial exam NOSE: Normal external nose present EXTERNAL EAR: Yes external ears normal TEETH & GINGIVA: Yes abnormal tooth and associated gingiva Eye: COMMON NORMALS: Equal, round and reactive pupils present, EOMs intact bilaterally, conjunctivae normal, no scleral icterus, no papilledema, normal visual curtis by confrontation and fundi normal bilaterally Neck/C-Spine: COMMON NORMALS: full ROM, no lymphadenopathy, supple, no meningeal signs, no JVD, Thyroid normal and No carotid bruits Chest: COMMONS NORMALS: normal inspection of the chest, normal palpation of entire chest wall, normal inspection of the breasts and normal palpation of the breasts Resp: COMMON NORMALS: normal respiratory effort, No retractions, No use of accessory muscles, clear to auscultation bilaterally and percussion normal Cardio: COMMON NORMALS: no JVD, regular rate, regular rhythm, S1 normal heart sound present, S2 normal heart sound present, No gallops present (Cardio), No clicks present (Cardio), No murmurs present (Cardio), No rub (Cardio) and Peripheral pulses 2+ throughout GI: COMMON NORMALS: Normal to inspection, nondistended, normoactive bowel sounds present, Soft to palpation, non-tender, No hepatosplenomegaly present, no masses and no bruits : COMMON NORMALS: Yes no CVA tenderness, Yes normal external appearance, Yes normal appearance of the vagina, Yes normal appearance of the cervix, Yes normal bimanual exam, Yes No adnexal tenderness and Yes no masses Back/Pelvis: COMMON NORMALS: no CVA tenderness, thoracic and lumbar spine normal to inspection, no thoracic nor lumbar tenderness, thoraco-lumbar ROM normal and straight leg raise negative bilaterally THORACIC SPINE/UPPER BACK: Yes normal to inspection LUMBAR SPINE/LOWER BACK: Yes normal to inspection Extremity: COMMON NORMALS: normal to inspection, full ROM, capillary refill normal, no joint enlargement, no clubbing, cyanosis or edema, no calf tenderness and no pedal edema GENERAL: Yes normal exam except as noted Neuro: COMMON NORMALS: patient oriented x3, CN's II-XII intact bilaterally, moves all extremities, no focal motor deficits, no sensory deficits noted, deep tendon reflexes 2+ bilaterally and gait normal CRANIAL NERVES: Yes CN normal except as noted DEEP TENDON REFLEXES: Right triceps reflex intensity grade: 2+, Left triceps reflex intensity grade: 2+, Rt Biceps (C5, C6): 2+, Left biceps reflex intensity grade: 2+, Right brachioradialis reflex intensity grade: 2+, Left brachioradialis reflex intensity grade: 2+, Right patellar reflex intensity grade: 2+, Left patellar reflex intensity grade: 2+, Right ankle reflex intensity grade: 2+ and Left ankle reflex intensity grade: 2+ PUPIL EXAM: Normal pupillary reactivity/response: bilateral, Dilated: bilateral, Pinpoint: bilateral, Mid position: bilateral, Sluggish: bilateral and Fixed/non-reactive: bilateral Psych: COMMON NORMALS: mental status grossly normal, Normal thought process present, cooperative, normal affect, speech normal, activity/motor behavior normal, denies hallucinations, denies homicidal ideation and denies suicidal ideation Skin: GENERAL SKIN EXAM: no rashes or lesions noted Data : 09/27/21 17:34 09/27/21 17:34 Micro: Microbiology 09/27/21 19:33 Blood Culture - Preliminary Blood SPECIMEN COLLECTED 09/27/21 19:10 Blood Culture - Preliminary Blood SPECIMEN COLLECTED A&P Assessment and plan (1) Bacterial pneumonia: Status: Acute Plan Pneumonia. Bacterial versus viral. Patient recently diagnosed with influenza. Azithromycin 500 Mill grams IV daily plus Rocephin 1 g IV daily plus Tamiflu 75 Mill grams by mouth twice a day. Blood culture ?2 pending. Due to abnormal chest x-ray, CT IV contrast of the chest currently pending Overactive bladder. Toviaz 4 Mill grams by mouth daily Arthritis. Celebrex 200 Mill grams by mouth twice a day Depression. Zoloft 100 Mill grams by mouth daily Hyponatremia. We will monitor sodium level intermittently. IV normal saline 75 ML's per hour Elevated troponin. Will monitor patient on telemetry and checks her cardiac enzymes. Recheck EKG on the morning of September 28, 2021. Patient's asystematic Constipation. Colace 100 Mill grams by mouth 3 times a day Hypothyroidism History of cholelithiasis Hyperlipidemia. Crestor 20 Mill grams by mouth daily at bedtime Hypertension The patient currently takes Plavix any 5 Mill cans by mouth daily. The reason as to why will need to be clarified The patient currently takes raloxifene. The reason as to why will need to be clarified DVT prophylaxis. Lovenox 40 Mill grams subcutaneous leak daily Attestations Medical Necessity Statement*: Hospitalization is medically necessary as deemed by this hospitalization. Anticipated stay greater than 48 hours Coding Level of Care Code Acute Program Checker for [facility] [place] Diagnoses Bacterial pneumonia J15.9
[2021-09-27 21:41] VITALS: BP 150/75; PULSE 96; RESP 16; TEMP 36.8; O2SAT 93
[2021-09-27 22:33] VITALS: BP 120/75; PULSE 94; PULSE 95; RESP 20; TEMP 37.8; O2SAT 94
--- NOTE | 2021-09-27 22:33 | CTR_ITS ---
PROCEDURE INFORMATION: Exam: CT Chest With Contrast; Diagnostic Exam date and time: 09/27/2021 10:33 PM Age: 76 years old Clinical indication: Abnormal findings; Abnormal radiologic exam of lung or chest; Patient HX: Abnormal cxr, cough and SOB TECHNIQUE: Imaging protocol: Diagnostic computed tomography of the chest with contrast. Radiation optimization: All CT scans at this facility use at least one of these dose optimization techniques: automated exposure control; mA and/or kV adjustment per patient size (includes targeted exams where dose is matched to clinical indication); or iterative reconstruction. Contrast material: OMNI 300; Contrast volume: 95 ml; Contrast route: INTRAVENOUS (IV); COMPARISON: CR XR chest 1V portable [id number] 09/27/2021 4:41 PM RADIATION DOSE METRICS: Total DLP (mGy-cm): 378.48 FINDINGS: Lungs: The lung parenchyma demonstrates multilobar patchy areas of consolidation in both lower lobes and upper lobes consistent with pneumonia. Pleural spaces: Unremarkable. No pneumothorax. No pleural effusion. Heart: The heart is normal in size. There are no pericardial fluid collections. Esophagus: No esophageal thickening. Mediastinal space: There are no enlarged mediastinal lymph nodes or masses. Pulmonary arteries: The visualized central pulmonary arteries appear unremarkable. Aorta: There is no thoracic aortic aneurysm or dissection. There are mild scattered atherosclerotic calcifications throughout the thoracic aorta. Lymph nodes: Normal sized and borderline prominent mediastinal lymph nodes are noted, as large as 10 mm in short dimension in the right paratracheal space (series 602, image 32). There are mildly enlarged right hilar lymph nodes as large as 12.5 mm in short dimension (series 602, image 28). Diaphragm: There is a moderate-sized hiatal hernia. Liver: In the right liver lobe at the dome, there is a 12.8 x 8.1 cm hypoattenuating simple appearing cyst. 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 There are mild anterior and lateral osteophytes at multiple levels in the spine. Soft tissues: Unremarkable. CT/CT chest w con* [id number] IMPRESSION: 1. Multilobar pneumonia. Consider follow-up until resolution to exclude underlying neoplasm. 2. Right hilar lymphadenopathy and borderline prominent mediastinal lymph nodes. 3. Moderate-sized hiatal hernia. 4. A simple appearing hepatic cyst.
[2021-09-27 22:34] VITALS: BMI 25.4
--- NOTE | 2021-09-27 22:56 | ECG_ITS ---
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 Measurements Intervals [place] Rate: 100 P: 72 MI: 144 QRS: -36 QRSD: 89 T: 57 QT: 325 QTc: 419 Interpretive Statements SINUS TACHYCARDIA WITH OCCASIONAL SUPRAVENTRICULAR PREMATURE COMPLEXES LEFT AXIS DEVIATION [QRS AXIS < -30] Compared to ECG 09/27/2021 17:33:03 Left-axis deviation now present Left anterior fascicular block no longer present Electronically Signed On 09-28-2021 17:48:34 BAR WAITER/WAITRESS by Luly Seay M.D. [id number]
[2021-09-27] MEDS: iohexol 300 mg/mL 100 mL Btl IV (22:59)
[2021-09-27] MEDS: enoxaparin 40 mg/0.4 mL Syringe SUBCUT (23:09)
[2021-09-27] MEDS: acetaminophen 325 mg Tablet 650 MG PO (23:10)
[2021-09-27] MEDS: sodium chloride 0.9% 1,000 ML 75 ML IV (23:10)
[2021-09-27 23:34] LABS: Troponin 5 6HR 15.03 ng/L (0-10)
[2021-09-27 23:38] LABS: Troponin 5 6HR Delta -1.97 ng/L (0-12)
[2021-09-27 23:51] VITALS: BP 113/64; PULSE 99; RESP 17; TEMP 37.2; O2SAT 93
[2021-09-28] VITALS (9 sets, daily range): BP systolic 100–113; BP diastolic 63–74; PULSE 71–99; RESP 12–17; TEMP 36.4–37.2; O2SAT 93–96
[2021-09-28 05:07] LABS: Basophils % 0.2 %; Hematocrit 36.8 % (37.0-47.0); Hemoglobin 11.9 g/dL (11.5-15.3); Lymphocytes % 7.1 %; Mean Corpuscular HGB Conc 32.3 g/dL (30.0-36.0); Mean Corpuscular Hemoglobin 31.8 pg (28.0-34.0); Mean Corpuscular Volume 98.4 fl (81-99); Mean Platelet Volume 10.5 fL (7.4-10.4); Monocytes # 1.2 10^3/uL (0.2-0.9); Monocytes % 8.7 %; Neutrophils # 11.47 10^3/uL (1.8-7.7); Neutrophils % 82.8 %; Nucleated Red Blood Cells % 0 %; Platelet Count 159 10^3/cmm (130-400); Red Blood Count 3.74 10^6/uL (4.1-5.3); Red Cell Distribution Width 12.3 % (12.1-15.1); White Blood Count 13.9 10^3/uL (4.0-10.0)
[2021-09-28 05:30] LABS: Sodium 134 mmol/L (136-145)
--- NOTE | 2021-09-28 06:00 | ECG_ITS ---
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 Measurements Intervals [place] Rate: 79 P: 76 VA: 149 QRS: -24 QRSD: 105 T: 57 QT: 361 QTc: 414 Interpretive Statements SINUS RHYTHM BORDERLINE LEFT AXIS DEVIATION [QRS AXIS < -20] INTERPRETATION BASED ON A DEFAULT AGE OF 40 YEARS Compared to ECG 09/27/2021 21:00:51 Sinus tachycardia no longer present Electronically Signed On 09-28-2021 17:50:03 RESIDENT MEDICAL OFFICER by Luly Seay M.D. [id number]
[2021-09-28] MEDS: clopidogrel 75 mg Tablet PO (08:07)
[2021-09-28] MEDS: atorvastatin 40 mg Tablet 80 MG PO (08:07)
[2021-09-28] MEDS: sertraline 100 mg Tablet PO (08:07)
[2021-09-28] MEDS: oseltamivir phosphate 75 mg Capsule PO ×2 (08:07→16:16)
[2021-09-28] MEDS: azithromycin 500 MG in sodium chloride 0.9% 250 ML 250 MG IV (08:07)
[2021-09-28] MEDS: CELEcoxib 200 mg Capsule PO ×2 (08:07→16:16)
[2021-09-28] MEDS: cefTRIAXone 1,000 MG in sodium chloride 0.9% (plus) 50 ML 100 MG IV (08:08)
--- NOTE | 2021-09-28 11:15 | PC.PHAR ---
pt states she takes care of her own medications-pt states she stop taking plavix a month or so ago-pt states she told that she was going to stop taking-ext med hisotry shows last filled 06/30/21 90d/s-told pts nurse on medsurg pt states she hadnt taken for a month or so nurse states she will note it in the chart-pt states she also stop taking the raloxifene a month ago ext med history shows last filled 06/30/21 90d/s-notes are made in the pharmacy comments
--- NOTE | 2021-09-28 11:30 | PC.CHAP ---
Pastoral Care Encounter/Spiritual Assessment Type of Contact [] Declined director of reservations visit [] Patient/Family/Request visit [] Outpatient visit [] Follow-up visit [] Physician referral [] Code/Alert [] Routine visit [] Staff referral [] Actively dying [] Patient sleeping [] Family support [] [] Out of room [] Palliative care [] [] Receiving care in room [] Pre-surgical visit [] Trauma [] Long length of stay [] ICU visit [x] Other: Isolation Relational/Emotional Strength [] Patient feels connected with others/family/visitors/staff [] Distress [] Loneliness/isolation [] Abandonment Spirituality of Patient [] Person of Faiza [] Attends Alevism of their Faiza [] Believes in Prayer [] Reads Bible or Islam materials [] There are Spiritual issues to be addressed Media Analytics Manager Interventions [] Prayer [] Active listening [] Non-anxious presence [] Spiritual/emotional support [] Crisis/trauma care [] Spiritual counseling [] Bereavement support [] Provided bereavement packet [] Provided Bible/devotional materials [] Provided toy/stuffed animal, coloring book to patient or family member [] Provided Communion [] Anointing/[place] [] Salvation [] Completed spiritual assessment [] Other: Impact on Illness or Injury [] Angry [] Fearful [] Anxious [] Often cries [] Exhaustion [] Unable to work [] Unable to attend yazidi [] Unable to walk/stand [] Unable to read [] Unable to drive [] Unable to eat/drink [] Unable to sleep [] Unable to be with family [] Patient intubated [] Other: Summary Isolation Time spent with patient 5 mins
--- NOTE | 2021-09-28 11:37 | PM.PN ---
Subjective Subjective: Patient was seen and examined this morning daughter was at bedside, she was complaining of generalized weakness malaise generalized body pain, cough, feels slightly better as compared to prior days after hospitalization, overnight she has remained afebrile,wbc count is trending down. Her other vitals and labs have been reviewed. Medications: Medication Review Details: Generic Name Dose Route Start Last Admin Trade Name Freq PRN Reason Stop Dose Admin Acetaminophen 650 mg 09/27/21 22:33 09/27/21 23:10 Acetaminophen 32 5 Mg Tablet PO 650 mg Q6H PRN Administration Mild/Mod Pain Or Temp >/= 101 Celecoxib 200 mg 09/28/21 09:00 09/28/21 08:07 Celecoxib 200 Mg Capsule PO 200 mg BID NYA Administration Clopidogrel Bisulf ate 75 mg 09/28/21 09:00 09/28/21 08:07 Clopidogrel 75 M g Tablet PO 75 mg DAILY NYA Administration Enoxaparin Sodium 40 mg 09/27/21 22:33 09/27/21 23:09 Enoxaparin 40 Mg /0.4 Ml Syringe SUBCUT 40 mg Q24H NYA Administration Sodium Chloride 1,000 mls @ 75 ml s/hr 09/27/21 22:33 09/27/21 23:10 Sodium Chloride 0.9% IV 75 mls/hr .[id number] NYA Administration Azithromycin 500 m g/ Sodium 250 mls @ 250 mls /hr 09/28/21 09:00 09/28/21 08:07 Chloride IV 250 mls/hr DAILY NYA Administration Protocol Ceftriaxone Sodium 1,000 mg/ 50 mls @ 100 mls/ hr 09/28/21 09:00 09/28/21 08:08 Sodium Chloride IV 100 mls/hr DAILY NYA Administration Protocol Non-Formulary Medi cation 4 mg 09/28/21 09:00 09/28/21 08:08 Fesoterodine [To viaz] PO Not Given DAILY NYA Non-Formulary Medi cation 60 mg 09/28/21 09:00 09/28/21 08:08 Raloxifene PO Not Given DAILY NYA Oseltamivir Phosph ate 75 mg 09/28/21 09:00 09/28/21 08:07 Oseltamivir Phos phate 75 Mg Capsul e PO 75 mg BID NYA Administration Sertraline HCl 100 mg 09/28/21 09:00 09/28/21 08:07 Sertraline 100 M g Tablet PO 100 mg DAILY NYA Administration Vitals/I&O/Wt Last Vital Signs Temp 99 F 09/28/21 07:49 Pulse 79 09/28/21 07:49 Resp 12 09/28/21 07:49 BP 106/70 09/28/21 07:49 Pulse Ox 93 09/28/21 07:49 09/27/21 09/28/21 09/28/21 22:59 06:59 14:59 Intake Total 1150 / 1150 Balance 1150 / 1150 Weight last 48 hrs Weight 61.235 kg Weight 61.235 kg Physical Exam Const: COMMON NORMALS: patient oriented x3 HENMT: COMMON NORMALS: normocephalic and atraumatic HEAD & SCALP: normocephalic and atraumatic Resp: COMMON NORMALS: normal respiratory effort, No retractions and No use of accessory muscles EFFORT & INSPECTION: Yes symmetric chest movement OTHER: Coarse breath sounds bilaterally. Cardio: COMMON NORMALS: regular rate, regular rhythm, S1 normal heart sound present, S2 normal heart sound present, No gallops present (Cardio), No murmurs present (Cardio), No rub (Cardio) and Peripheral pulses 2+ throughout RATE: regular rate RHYTHM: regular rhythm HEART SOUNDS: S1 normal heart sound present and S2 normal heart sound present PERIPHERAL PULSES: Peripheral pulses 2+ throughout GI: COMMON NORMALS: Normal to inspection, nondistended, normoactive bowel sounds present, Soft to palpation, non-tender, No hepatosplenomegaly present and no masses AUSCULTATION: Yes normoactive bowel sounds PALPATION: Yes Soft to palpation and Yes No hepatosplenomegaly present RECTAL EXAM: deferred Extremity: COMMON NORMALS: no clubbing, cyanosis or edema and no pedal edema Neuro: COMMON NORMALS: patient oriented x3 Data : 09/28/21 04:44 09/28/21 04:44 Micro: Microbiology 09/27/21 19:33 Blood Culture - Preliminary Blood SPECIMEN COLLECTED 09/27/21 19:10 Blood Culture - Preliminary Blood SPECIMEN COLLECTED A&P Assessment and plan (1) Bacterial pneumonia: Status: Acute Plan 86-year-old female with past medical history of arthritis, hypothyroidism, dyslipidemia came in with chief complaint of generalized body pain, diarrhea and nonproductive cough, malaise, shortness of breath, going on for the last 2 weeks. Assessment #Pneumonia: Likely viral pneumonia with possible superimposed bacterial PNA: Patient was recently tested positive for flu. CT chest without contrast: multilobar patchy areas of consolidation in both lower lobes and upper lobes consistent with Multilobar pneumonia..Right hilar lymphadenopathy and borderline prominent mediastinal lymph nodes. Procalcitonin 0.77, WBC count 16.5, with neutrophilic predominance Covid PCR negative Blood culture Sputum Gram stain and culture MRSA PCR Urine Legionella antigen Bacterial antigen panel Admission ABG: pH 7.56 PCO2 24 PO2 58, FiO2 28% Continue ceftriaxone azithromycin and Tamiflu Continue to monitor x-ray chest. DuoNebs Antitussives #Hypothyroidism: TSH::1.65 Continue levothyroxine Elevated troponin. Likely sec type II RI in the setting of pneumonia: Patient denies any chest pain EKG : Sinus rhythm with no acute ST-T wave changes. Continue Plavix , statin Continue telemetry monitoring Overactive bladder. Toviaz 4 Mill grams by mouth daily Arthritis. Celebrex 200 Mill grams by mouth twice a day Depression. Zoloft 100 Mill grams by mouth daily Hyponatremia. We will monitor sodium level intermittently. IV normal saline 75 ML's per hour Constipation. Colace 100 Mill grams by mouth 3 times a day History of cholelithiasis DVT prophylaxis. Lovenox 40 Mill grams subcutaneous leak daily Attestations Medical Necessity Statement*: Patient is to be in hospital for management of pneumonia Time Spent in Patient Care: Greater than 35 minutes (>than 50% of time spent in counselling and/or direct pt care on unit). 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
[2021-09-28] MEDS: sodium chloride 0.9% 1,000 ML 75 ML IV (16:16)
[2021-09-28] MEDS: benzonatate 100 mg Capsule 200 MG PO ×2 (16:16→20:59)
[2021-09-28 18:38] LABS: Add Urine Microscopic? YES; Bacteria Urine 1+ /hpf; Bilirubin Urine 1+ (Negative); Blood Urine Neg (Negative); Glucose Urine UA Norm (Normal); Ketones Urine 1+ (Negative); Leukocyte Esterase Urine Trace (Negative); Nitrate Urine Negative (Negative); Protein Urine 1+ (Negative); RBC Urine RARE /hpf (0-2); Squamous Epithelial Cell Urine 0-4 /hpf (0-5); Urine Appearance Clear (CLEAR); Urine Color Yellow (Yellow); Urobilinogen Urine Neg (Negative); WBC Urine 0-4 /hpf (0-5); pH Urine 5 (5-7)
[2021-09-28 18:39] LABS: Add Urine Culture? No; Amorphous Sediment Urine 1+ /hpf; Fine Granular Casts Urine 0-4 /lpf
--- NOTE | 2021-09-28 19:55 | PC.NURSE ---
i reported low temp 97.5 to nurse
[2021-09-28] MEDS: atorvastatin 40 mg Tablet PO (20:59)
[2021-09-28] MEDS: enoxaparin 40 mg/0.4 mL Syringe SUBCUT (22:43)
[2021-09-29] VITALS (7 sets, daily range): BP systolic 116–131; BP diastolic 68–80; PULSE 70–81; RESP 16–20; TEMP 36.5–37; O2SAT 95–97
[2021-09-29 05:06] LABS: Basophils % 0.1 %; Eosinophils # 0.1 10^3/uL (0.0-0.8); Eosinophils % 0.6 %; Hematocrit 35.9 % (37.0-47.0); Hemoglobin 11.6 g/dL (11.5-15.3); Lymphocytes # 1.3 10^3/uL (0.8-4.8); Lymphocytes % 15.8 %; Mean Corpuscular HGB Conc 32.3 g/dL (30.0-36.0); Mean Corpuscular Hemoglobin 31.8 pg (28.0-34.0); Mean Corpuscular Volume 98.4 fl (81-99); Mean Platelet Volume 10.5 fL (7.4-10.4); Monocytes # 0.8 10^3/uL (0.2-0.9); Neutrophils # 5.69 10^3/uL (1.8-7.7); Neutrophils % 71.7 %; Nucleated Red Blood Cells % 0 %; Platelet Count 201 10^3/cmm (130-400); Red Blood Count 3.65 10^6/uL (4.1-5.3); Red Cell Distribution Width 12.3 % (12.1-15.1); White Blood Count 7.9 10^3/uL (4.0-10.0)
[2021-09-29 05:25] LABS: Anion Gap 15.3 (5-19); Blood Urea Nitrogen 17 mg/dL (8-23); Calcium 8.6 mg/dL (8.5-10.5); Carbon Dioxide 17 mmol/L (22-29); Chloride 108 mmol/L (98-107); Creatinine Clr Calc Pharmacy 51.7893; Glucose 99 mg/dL (65-115); Osmolality Calculated 286 mOsm/kg (285-295); Potassium 3.3 mmol/L (3.5-5.1); Sodium 137 mmol/L (136-145)
[2021-09-29 05:30] LABS: Slide Review Slide Review Perform
[2021-09-29] MEDS: levothyroxine 25 mcg Tablet PO (05:32)
[2021-09-29] MEDS: sodium chloride 0.9% 1,000 ML 75 ML IV (05:32)
[2021-09-29] MEDS: azithromycin 500 MG in sodium chloride 0.9% 250 ML 250 MG IV (08:54)
[2021-09-29] MEDS: cefTRIAXone 1,000 MG in sodium chloride 0.9% (plus) 50 ML 100 MG IV (09:08)
[2021-09-29] MEDS: clopidogrel 75 mg Tablet PO (09:08)
[2021-09-29] MEDS: CELEcoxib 200 mg Capsule PO ×2 (09:08→16:59)
[2021-09-29] MEDS: sertraline 100 mg Tablet PO (09:08)
[2021-09-29] MEDS: benzonatate 100 mg Capsule 200 MG PO ×2 (09:08→21:55)
[2021-09-29] MEDS: oseltamivir phosphate 75 mg Capsule PO ×2 (09:43→17:00)
--- NOTE | 2021-09-29 11:07 | PM.PN ---
Subjective Subjective: Patient was seen and examined this morning daughter was at bedside, states she feels better, shortness of breath is improved, generalized body pain has improved, has remained afebrile. Medications: Medication Review Details: Generic Name Dose Route Start Last Admin Trade Name Freq PRN Reason Stop Dose Admin Acetaminophen 650 mg 09/27/21 22:33 09/27/21 23:10 Acetaminophen 32 5 Mg Tablet PO 650 mg Q6H PRN Administration Mild/Mod Pain Or Temp >/= 101 Celecoxib 200 mg 09/28/21 09:00 09/28/21 08:07 Celecoxib 200 Mg Capsule PO 200 mg BID NYA Administration Clopidogrel Bisulf ate 75 mg 09/28/21 09:00 09/28/21 08:07 Clopidogrel 75 M g Tablet PO 75 mg DAILY NYA Administration Enoxaparin Sodium 40 mg 09/27/21 22:33 09/27/21 23:09 Enoxaparin 40 Mg /0.4 Ml Syringe SUBCUT 40 mg Q24H NYA Administration Sodium Chloride 1,000 mls @ 75 ml s/hr 09/27/21 22:33 09/27/21 23:10 Sodium Chloride 0.9% IV 75 mls/hr .[id number] NYA Administration Azithromycin 500 m g/ Sodium 250 mls @ 250 mls /hr 09/28/21 09:00 09/28/21 08:07 Chloride IV 250 mls/hr DAILY NYA Administration Protocol Ceftriaxone Sodium 1,000 mg/ 50 mls @ 100 mls/ hr 09/28/21 09:00 09/28/21 08:08 Sodium Chloride IV 100 mls/hr DAILY NYA Administration Protocol Non-Formulary Medi cation 4 mg 09/28/21 09:00 09/28/21 08:08 Fesoterodine [To viaz] PO Not Given DAILY NYA Non-Formulary Medi cation 60 mg 09/28/21 09:00 09/28/21 08:08 Raloxifene PO Not Given DAILY NYA Oseltamivir Phosph ate 75 mg 09/28/21 09:00 09/28/21 08:07 Oseltamivir Phos phate 75 Mg Capsul e PO 75 mg BID NYA Administration Sertraline HCl 100 mg 09/28/21 09:00 09/28/21 08:07 Sertraline 100 M g Tablet PO 100 mg DAILY NYA Administration Vitals/I&O/Wt Last Vital Signs Temp 98.1 F 09/29/21 08:00 Pulse 74 09/29/21 08:00 Resp 16 09/29/21 08:00 BP 124/80 09/29/21 08:00 Pulse Ox 95 09/29/21 08:00 09/28/21 09/29/21 09/29/21 22:59 06:59 14:59 Intake Total 260 / 1260 995 / 2255 540 / 540 Output Total 1020 / 1021 Balance 259 / 1259 -25 / 1234 540 / 540 Weight last 48 hrs Weight 61.235 kg Weight 61.235 kg Physical Exam Const: COMMON NORMALS: patient oriented x3 HENMT: COMMON NORMALS: normocephalic and atraumatic HEAD & SCALP: normocephalic and atraumatic Resp: COMMON NORMALS: normal respiratory effort, No retractions and No use of accessory muscles EFFORT & INSPECTION: Yes symmetric chest movement OTHER: Coarse breath sounds bilaterally. Cardio: COMMON NORMALS: regular rate, regular rhythm, S1 normal heart sound present, S2 normal heart sound present, No gallops present (Cardio), No murmurs present (Cardio), No rub (Cardio) and Peripheral pulses 2+ throughout RATE: regular rate RHYTHM: regular rhythm HEART SOUNDS: S1 normal heart sound present and S2 normal heart sound present PERIPHERAL PULSES: Peripheral pulses 2+ throughout GI: COMMON NORMALS: Normal to inspection, nondistended, normoactive bowel sounds present, Soft to palpation, non-tender, No hepatosplenomegaly present and no masses AUSCULTATION: Yes normoactive bowel sounds PALPATION: Yes Soft to palpation and Yes No hepatosplenomegaly present RECTAL EXAM: deferred Extremity: COMMON NORMALS: no clubbing, cyanosis or edema and no pedal edema Neuro: COMMON NORMALS: patient oriented x3 Data : 09/29/21 04:58 09/29/21 04:58 Micro: Microbiology 09/27/21 19:33 Blood Culture - Preliminary Blood NEGATIVE TO DATE 09/27/21 19:10 Blood Culture - Preliminary Blood NEGATIVE TO DATE 09/28/21 17:00 Legionella Urinary Antigen - Final Urine,Clean Catch A&P Assessment and plan (1) Bacterial pneumonia: Status: Acute Plan 86-year-old female with past medical history of arthritis, hypothyroidism, dyslipidemia came in with chief complaint of generalized body pain, diarrhea and nonproductive cough, malaise, shortness of breath, going on for the last 2 weeks. Assessment #Pneumonia: Likely viral pneumonia with possible superimposed bacterial PNA: Patient was recently tested positive for flu. CT chest without contrast: multilobar patchy areas of consolidation in both lower lobes and upper lobes consistent with Multilobar pneumonia..Right hilar lymphadenopathy and borderline prominent mediastinal lymph nodes. Procalcitonin 0.77, WBC count 16.5, with neutrophilic predominance Covid PCR negative Blood culture Sputum Gram stain and culture MRSA PCR Urine Legionella antigen Bacterial antigen panel Admission ABG: pH 7.56 PCO2 24 PO2 58, FiO2 28% Continue ceftriaxone azithromycin and Tamiflu Continue to monitor x-ray chest. DuoNebs Antitussives #Hypothyroidism: TSH::1.65 Continue levothyroxine Elevated troponin. Likely sec type II [place] in the setting of pneumonia: Patient denies any chest pain EKG : Sinus rhythm with no acute ST-T wave changes. Continue Plavix , statin Continue telemetry monitoring Overactive bladder. Toviaz 4 Mill grams by mouth daily Arthritis. Celebrex 200 Mill grams by mouth twice a day Depression. Zoloft 100 Mill grams by mouth daily Hyponatremia. We will monitor sodium level intermittently. IV normal saline 75 ML's per hour Constipation. Colace 100 Mill grams by mouth 3 times a day History of cholelithiasis DVT prophylaxis. Lovenox 40 Mill grams subcutaneous leak daily Attestations Medical Necessity Statement*: Patient needs to be in hospital for management of pneumonia Coding Level of Care Code Acute Receivable Clerk for Jud Fwd Exam Detailed Diagnoses Bacterial pneumonia J15.9
[2021-09-29] MEDS: potassium chloride ER 20 mEq Tablet 40 MEQ PO (12:28)
[2021-09-29] MEDS: enoxaparin 40 mg/0.4 mL Syringe SUBCUT (21:55)
[2021-09-29] MEDS: atorvastatin 40 mg Tablet PO (21:55)
[2021-09-29] MEDS: zolpidem 5 mg Tablet PO (21:55)
[2021-09-30 04:00] VITALS: BP 130/81; PULSE 74; RESP 16; TEMP 36.8; O2SAT 96
[2021-09-30] MEDS: levothyroxine 25 mcg Tablet PO (05:31)
[2021-09-30 05:57] LABS: Basophils % 0.4 %; Eosinophils # 0.1 10^3/uL (0.0-0.8); Eosinophils % 1.6 %; Hematocrit 36.3 % (37.0-47.0); Hemoglobin 11.8 g/dL (11.5-15.3); Lymphocytes # 1.4 10^3/uL (0.8-4.8); Lymphocytes % 26.7 %; Mean Corpuscular HGB Conc 32.5 g/dL (30.0-36.0); Mean Corpuscular Hemoglobin 31.2 pg (28.0-34.0); Mean Platelet Volume 10.8 fL (7.4-10.4); Monocytes # 0.6 10^3/uL (0.2-0.9); Monocytes % 11.1 %; Neutrophils # 2.98 10^3/uL (1.8-7.7); Neutrophils % 58.1 %; Nucleated Red Blood Cells % 0 %; Platelet Count 284 10^3/cmm (130-400); Red Blood Count 3.78 10^6/uL (4.1-5.3); Red Cell Distribution Width 12.4 % (12.1-15.1); White Blood Count 5.1 10^3/uL (4.0-10.0)
[2021-09-30 06:11] LABS: Anion Gap 12.9 (5-19); Blood Urea Nitrogen 10 mg/dL (8-23); Calcium 8.8 mg/dL (8.5-10.5); Carbon Dioxide 23 mmol/L (22-29); Chloride 109 mmol/L (98-107); Glucose 95 mg/dL (65-115); Osmolality Calculated 291 mOsm/kg (285-295); Potassium 3.9 mmol/L (3.5-5.1); Sodium 141 mmol/L (136-145)
[2021-09-30 06:30] LABS: Slide Review Slide Review Perform
[2021-09-30 07:32] VITALS: BP 129/80; PULSE 81; RESP 16; TEMP 36.6; O2SAT 97
[2021-09-30] MEDS: CELEcoxib 200 mg Capsule PO (08:20)
[2021-09-30] MEDS: clopidogrel 75 mg Tablet PO (08:20)
[2021-09-30] MEDS: benzonatate 100 mg Capsule 200 MG PO (08:20)
[2021-09-30] MEDS: sertraline 100 mg Tablet PO (08:20)
[2021-09-30] MEDS: oseltamivir phosphate 75 mg Capsule PO (08:28)
[2021-09-30] MEDS: cefTRIAXone 1,000 MG in sodium chloride 0.9% (plus) 50 ML 100 MG IV (08:30)
[2021-09-30] MEDS: azithromycin 500 MG in sodium chloride 0.9% 250 ML 250 MG IV (09:44)
[2021-09-30 11:28] VITALS: BP 150/84; PULSE 84; RESP 16; TEMP 37.1; O2SAT 98
[2021-09-30 13:27] VITALS: BP 150/84; PULSE 84; RESP 16; TEMP 37.1; O2SAT 98
--- NOTE | 2021-09-30 13:40 | PC.SOCIAL ---
IMM UPDATED IMM dated and initialed and copy given to patient
--- NOTE | 2021-09-30 15:32 | PM.DCS ---
Discharge Providers Date of Admission: 09/27/21 22:53 Date of Discharge: September 30, 2021 Attending Provider at Admission: Andressa Rinaldi DO Attending Provider at Discharge: Shay Cordova MD Primary Care Provider: Gordo Enciso MD Diagnoses at Discharge Discharge Diagnosis (1) Bacterial pneumonia: Status: Acute Reason for Visit Reason for Visit: Very sick, flu positive Hospital Course Hospital Course 86-year-old female with past medical history of arthritis, hypothyroidism, dyslipidemia came in with chief complaint of generalized body pain, diarrhea and nonproductive cough, malaise, shortness of breath, going on for the last 2 weeks. She was admitted for the management of pneumonia, likely viral with superimposed bacterial pneumonia, Was continued on broad-spectrum antibiotics during the hospital stay, duo nebs supplemental oxygen as needed, antitussives, Covid PCR negative, Blood culture , NTD , urine Legionella antigen negative bacterial antigen panel negative MRSA PCR negative. X-ray chest was consistent with pneumonia. CT chest w con: Multilobar pneumonia. Consider follow-up until resolution to exclude underlying neoplasm.,Right hilar lymphadenopathy and borderline prominent mediastinal lymph nodes. She responded well to above conservative medical management at the time of discharge she was afebrile, saturating well on room air , fatigue , generalized body pain , and other symptoms had improved a lot. She was hemodynamically stable. She was also managed for FLU she was kept on Tamiflu for that she has been discharged on 5-day course. She was also managed for hypothyroidism was continued on levothyroxine. She also had elevated troponin likely type II [place] in the setting of pneumonia.EKG : Sinus rhythm with no acute ST-T wave changes.She was continued on Plavix and a statin which was her home medication. Hyponatremia , dehydration resolved IV hydration. She responded well to above medical management discharge in stable condition to home, she was discharged on p.o. levofloxacin to complete the 10-day course of antibiotic, remaining doses of Tamiflu was also provided on discharge. Physical Exam Const: COMMON NORMALS: patient oriented x3 HENMT: COMMON NORMALS: normocephalic and atraumatic HEAD & SCALP: normocephalic and atraumatic Resp: COMMON NORMALS: normal respiratory effort, No retractions, No use of accessory muscles and clear to auscultation bilaterally AUSCULTATION: clear to auscultation bilaterally Cardio: COMMON NORMALS: regular rate, regular rhythm, S1 normal heart sound present, S2 normal heart sound present, No gallops present (Cardio), No murmurs present (Cardio), No rub (Cardio) and Peripheral pulses 2+ throughout RATE: regular rate RHYTHM: regular rhythm HEART SOUNDS: S1 normal heart sound present and S2 normal heart sound present PERIPHERAL PULSES: Peripheral pulses 2+ throughout GI: COMMON NORMALS: Normal to inspection, nondistended, normoactive bowel sounds present, Soft to palpation, non-tender, No hepatosplenomegaly present and no masses AUSCULTATION: Yes normoactive bowel sounds PALPATION: Yes Soft to palpation and Yes No hepatosplenomegaly present RECTAL EXAM: deferred Extremity: COMMON NORMALS: no clubbing, cyanosis or edema and no pedal edema Neuro: COMMON NORMALS: patient oriented x3 Discharge Data Studies Completed and Pending Completed Studies During Hospitalization Category Date Time Status CT chest w con* [id number] Urgent Cat Scan 09/27/21 22:33 Completed XR chest 1V portable [id number] Urgent Exams 09/27/21 16:29 Completed Pending at discharge Category Date Time Status Blood Culture Stat Lab 09/27/21 19:33 Results Radiology Impressions Chest X-Ray 09/27/21 16:29 IMPRESSION: Right hilar enlargement and new right upper lobe hazy opacity. Although this may represent pneumonia, a lung mass with adenopathy is also consideration. Consider chest CT or short-term follow-up. Chest CT 09/27/21 22:33 IMPRESSION: 1. Multilobar pneumonia. Consider follow-up until resolution to exclude underlying neoplasm. 2. Right hilar lymphadenopathy and borderline prominent mediastinal lymph nodes. 3. Moderate-sized hiatal hernia. 4. A simple appearing hepatic cyst. Laboratory Results WBC 5.1 10^3/uL (4.0-10.0) 09/30/21 05:00 RBC 3.78 10^6/uL (4.1-5.3) L 09/30/21 05:00 Hgb 11.8 g/dL (11.5-15.3) 09/30/21 05:00 Hct 36.3 % (37.0-47.0) L 09/30/21 05:00 MCV 96.0 fl (81-99) 09/30/21 05:00 MCH 31.2 pg (28.0-34.0) 09/30/21 05:00 MCHC 32.5 g/dL (30.0-36.0) 09/30/21 05:00 RDW 12.4 % (12.1-15.1) 09/30/21 05:00 Plt Count 284 10^3/cmm (130-400) D 09/30/21 05:00 MPV 10.8 fL (7.4-10.4) H 09/30/21 05:00 Neut % (Auto) 58.1 % 09/30/21 05:00 Lymph % (Auto) 26.7 % 09/30/21 05:00 [place] % (Auto) 11.1 % 09/30/21 05:00 Eos % (Auto) 1.6 % 09/30/21 05:00 Baso % (Auto) 0.4 % 09/30/21 05:00 Neut # (Auto) 2.98 10^3/uL (1.8-7.7) 09/30/21 05:00 Lymph # (Auto) 1.4 10^3/uL (0.8-4.8) 09/30/21 05:00 [place] # (Auto) 0.6 10^3/uL (0.2-0.9) 09/30/21 05:00 Eos # (Auto) 0.1 10^3/uL (0.0-0.8) 09/30/21 05:00 Baso # (Auto) 0.0 10^3/uL (0.0-0.1) 09/30/21 05:00 Nucleated RBC % (auto) 0 % 09/30/21 05:00 Nucleated RBCs # 0.0 /100WBC 09/30/21 05:00 Specimen Type Arterial 09/27/21 17:38 Sample Site Brachial, left 09/27/21 17:38 ABG pH 7.56 (7.35-7.45) H 09/27/21 17:38 ABG pCO2 24.7 mmHg (35-45) L 09/27/21 17:38 ABG pO2 58.1 mmHg (80.0-100.0) L 09/27/21 17:38 ABG HCO3 22.3 mmol/L (22-26) 09/27/21 17:38 ABG Base Excess 1.5 mmol/L (-2.0-2.0) 09/27/21 17:38 Ger Test Pos 09/27/21 17:38 Hematocrit 41.0 % (37-47) 09/27/21 17:38 O2 Delivery Device Nc 09/27/21 17:38 FiO2 28.0 % 09/27/21 17:38 Gym Manager ID Cak 09/27/21 17:38 Sodium 141 mmol/L (136-145) 09/30/21 05:00 Potassium 3.9 mmol/L (3.5-5.1) 09/30/21 05:00 Chloride 109 mmol/L (98-107) H 09/30/21 05:00 Carbon Dioxide 23 mmol/L (22-29) 09/30/21 05:00 Anion Gap 12.9 (5-19) 09/30/21 05:00 BUN 10 mg/dL (8-23) 09/30/21 05:00 Creatinine 0.4 mg/dL (0.5-0.9) L 09/30/21 05:00 GFR Calculation Not Reportable 09/30/21 05:00 Glucose 95 mg/dL (65-115) 09/30/21 05:00 Calculated Osmolality 291 mOsm/kg (285-295) 09/30/21 05:00 Lactic Acid 1.5 mmol/L (0.5-2.2) 09/27/21 17:44 Calcium 8.8 mg/dL (8.5-10.5) 09/30/21 05:00 Total Bilirubin 0.7 mg/dL (0.15-1.2) 09/27/21 17:34 AST 31 U/L (0-32) 09/27/21 17:34 ALT 16 U/L (0-33) 09/27/21 17:34 Alkaline Phosphatase 99 IU/L (35-105) 09/27/21 17:34 Troponin T Baseline 17 ng/L (0-10) H 09/27/21 17:34 Troponin T 120 Minute 14.98 ng/L (0-10) H 09/27/21 19:49 Delta Troponin T -2.02 ABS# (0-10) L 09/27/21 19:49 Troponin T Hi Sens 6Hr 15.03 ng/L (0-10) H 09/27/21 23:03 Troponin T Hi Sens 6Hr Delta -1.97 ng/L (0-12) L 09/27/21 23:03 C-Reactive Protein 307.2 mg/L (0.0-4.9) H 09/27/21 17:34 NT-Pro-B Natriuret Pep 579 pg/mL (0-125) H 09/27/21 17:34 Total Protein 6.7 g/dL (6.6-8.7) 09/27/21 17:34 Albumin 3.4 g/dL (3.5-5.2) L 09/27/21 17:34 Globulin 3.3 g/dL (1.3-4.6) 09/27/21 17:34 Procalcitonin 0.77 ng/mL (0-0.5) H 09/27/21 17:34 TSH 1.65 uIU/mL (0.27-4.20) 09/27/21 17:34 Urine Color Yellow (Yellow) 09/27/21 17:00 Urine Appearance Clear (CLEAR) 09/27/21 17:00 Urine pH 5 (5-7) 09/27/21 17:00 Ur Specific [place] 1.010 (1.005-1.030) 09/27/21 17:00 Urine Protein 1+ (Negative) H 09/27/21 17:00 Urine Glucose (UA) Norm (Normal) 09/27/21 17:00 Urine Ketones 1+ (Negative) H 09/27/21 17:00 Urine Blood Neg (Negative) 09/27/21 17:00 Urine Nitrate Negative (Negative) 09/27/21 17:00 Urine Bilirubin 1+ (Negative) H 09/27/21 17:00 Urine Urobilinogen Neg mg/dL (Negative) 09/27/21 17:00 Ur Leukocyte Esterase Trace (Negative) H 09/27/21 17:00 Urine RBC Rare /hpf (0-2) 09/27/21 17:00 Urine WBC 0-4 /hpf (0-5) H 09/27/21 17:00 Ur Squamous Epith Cells 0-4 /hpf (0-5) H 09/27/21 17:00 Amorphous Sediment 1+ /hpf 09/27/21 17:00 Urine Bacteria 1+ /hpf (NONE) H 09/27/21 17:00 Fine Granular Casts 0-4 /lpf H 09/27/21 17:00 SARS-CoV-2 Ag (Rapid) Negative (Negative) 09/27/21 17:28 Vitals Last Vital Signs Temp 98.7 F 09/30/21 13:27 Pulse 84 09/30/21 13:27 Resp 16 09/30/21 13:27 BP 150/84 09/30/21 13:27 Pulse Ox 98 09/30/21 13:27 Discharge Plan Discharge Patient Disposition: Home Condition: Stable Prescriptions: New benzonatate 100 mg Capsule 200 mg PO TID 7 Days Qty: 42 0RF oseltamivir 75 mg Capsule 75 mg PO BID 3 Days Qty: 5 0RF levofloxacin 750 mg tablet 750 mg PO DAILY 7 Days Qty: 7 0RF Continued celecoxib 200 mg capsule 200 mg PO BID 0RF sertraline 100 mg tablet 100 mg PO DAILY 0RF clopidogrel 75 mg tablet 75 mg PO DAILY 0RF Label Comments: pt states she stop taking a month or so ago-pt states she told that she was going to stop taking-ext med [employer] last filled 06/30/21 90d/s levothyroxine 25 mcg tablet See Rx Instructions .ROUTE .COMPLEX 0RF Rx Instructions: 25 MCG PO DAILY ON SATURDAY THROUGH SATURDAY AND 37.5 MCG TAB ON SAT AND SAT raloxifene 60 mg tablet 60 mg PO DAILY 0RF rosuvastatin 20 mg tablet 20 mg PO QPM 0RF polyethylene glycol 3350 [Miralax] 17 gram/dose powder 17 g PO DAILY PRN (Reason: constipation) Qty: 119 0RF albuterol sulfate 90 mcg/actuation HFA aerosol inhaler 2 puff INHALATION Q4H PRN (Reason: Shortness Of Breath) 0RF calcium-vitamin D3-vitamin K 500-500-40 mg-unit-mcg Tablet,Chewable 1 - 2 tab PO DAILY 0RF Myrbetriq 50 mg tablet extended release 24 hr 50 mg PO BEDTIME 0RF Red Krill Oil Caps 1 cap PO BID 0RF Discontinued prednisone 20 mg tablet 40 mg PO DAILY 0RF Rx Instructions: for 5 days Discharge Orders: Discharge Order (Routine); Ordered 09/30/21 Ordered By: Shay Cordova Referrals: Gordo Enciso MD [Primary Care Provider] - 10/16/21 2:30 pm (Please call Saturday to make a hospital follow up appointment. ) Discharge Diet: Regular Discharge Activity: Increase activity as tolerated Patient Instructions: Benzonatate (By mouth), Levofloxacin (By mouth), Oseltamivir (By mouth), Influenza (DC), Bacterial Pneumonia (DC), Opioid Safety Discharge Attestations Time Spent in Discharge Care*: greater than 30 min Specific Discharge Activities: educating patient, educating and/or supporting family/caregiver, discussing with pcp/other providers, discussing with watch case polisher/social workers/dc planners, documenting/other paperwork and evaluating patient/reviewing data Quality Metrics Clinical Quality Measures [ No reported AMI, CVA or VTE this stay] Coding Level of Care Code Acute Chg FW DC note Diagnoses Bacterial pneumonia J15.9
== END 2021-09-30 12:30 | disposition home or self-care (01) | DRG 193 ==
LOC: ER 19:45 → MEDSURG 21:45
PROVIDERS: Physician Assistant; Admitting Provider Internal Medicine; Emergency Provider Emergency Medicine; PCP Family Medicine; Visit Provider Internal Medicine
DX: J10.00 Influenza due to other identified influenza virus with unspecified type of pneumonia (principal); I21.A1 Myocardial infarction type 2; E87.1 Hypo-osmolality and hyponatremia; J15.9 Unspecified bacterial pneumonia; F32.A Depression, unspecified; N32.81 Overactive bladder; M19.90 Unspecified osteoarthritis, unspecified site; K59.00 Constipation, unspecified; E03.9 Hypothyroidism, unspecified; E78.5 Hyperlipidemia, unspecified; I10 Essential (primary) hypertension; R59.0 Localized enlarged lymph nodes; E86.0 Dehydration; Z79.02 Long term (current) use of antithrombotics/antiplatelets; Z79.51 Long term (current) use of inhaled steroids
CPT/HCPCS: 36415; 36600; 71045; 71260; 80048; 80053; 80305; 81001; 82803; 83605; 83880; 84145; 84295; 84443; 84484; 85025; 86140; 86403; 87040; 87426; 87449; 87641; 93005; 96372; J0456; J0696; J1650; J3490; J7030; J7050; Q9967

== ENCOUNTER 2022-05-17 13:35 | Outpatient (CLI) | payer MEDICARE, MEDICAID, SELFPAY ==
--- NOTE | 2022-05-17 13:45 | XR_ITS ---
WS: [id number] DEXA (DUAL ENERGY X-RAY ABSORPTIOMETRY) Bone mineral density was performed using a B-Obvious machine. HISTORY: OSTEOPOROSIS COMPARISON: 12/01/2018 Lumbar spine BMD (L1-L4): 1.170 g/cm2 T score: -0.1 Z score: 1.8 Total hip BMD: Left: 0.658 g/cm2. T score: -2.8 Z score: -1.0 Right: 0.554 g/cm2. T score: -3.6 Z score: -1.8 10 year probability of a major osteoporotic fracture is 40%. Compared to the prior study from 12/01/2018. Lumbar spine bone mineral density has decreased by 3.7%. Bilateral hips bone mineral density has decreased by 12.8%. XR/XR DEXA axial skeleton* 57739 IMPRESSION: OSTEOPOROSIS based upon the WHO classification for females. Significant decrease in bone mineral density within the lumbar spine and hips s shannan the prior study.
== END 2022-05-17 13:36 | disposition home or self-care (01) ==
LOC: RAD 13:35
PROVIDERS: PCP Family Medicine; Visit Provider Family Medicine
DX: M81.0 Age-related osteoporosis without current pathological fracture (principal)
CPT/HCPCS: 77080

== ENCOUNTER 2023-09-16 14:03 | Outpatient (CLI) | payer MEDICARE, MEDICAID, SELFPAY ==
--- NOTE | 2023-09-16 14:11 | CT_ITS ---
WS: [id number] CT ABDOMEN PELVIS TECHNIQUE: Contrast-enhanced CT of the abdomen and pelvis with coronal and sagittal reformatted image s. CLINICAL INFORMATION: L FLANK PAIN/LLQ PAIN COMPARISON: CT 07/18/2020 DLP: 282.[address] scans at [facility] use at least one of these dose optimization techniques: automated e xposure control; mA and/or kV adjustment per patient size (includes targeted exams where dose is matc hed to clinical indication); or iterative reconstruction. FINDINGS: No hydronephrosis in either kidney. Normal ureteral emptying on the delayed imaging. No obs tructing renal or ureteral calculi. A few small bilateral renal cysts. Mild cortical atrophy. Prior hysterectomy and appendectomy. Mild diffuse fatty infiltration of the liver. RIGHT hepatic cyst measuring 13 mm. Portal vein and splenic vein are patent. Normal spleen. Large esophageal hernia sim ilar to the prior examination. Calcified granuloma RIGHT lower lobe. Subsegmental atelectasis RIGHT l ower lobe. Chronic emphysematous changes in the lung bases. Splenic artery calcification. Normal panc reatic parenchymal enhancement. Hydropic gallbladder with cholelithiasis. This could followed up with ultrasound. Normal caliber abdominal aorta. Aortic calcification. Mesenteric and proximal renal artery calcificat ion. Rectal constipation. Mild constipation splenic flexure and transverse colon. No evidence of high-grad e small or large bowel obstruction. Tiny fat-containing umbilical hernia. Advanced bone lytic changes lumbar spine with grade 1 anterolisthesis L4 on L5. Severe central canal stenosis L4-5. This could b e followed up with MRI. IMPRESSION: 1. Somewhat hydropic gallbladder with cholelithiasis. This can be further evaluated with ultrasound. No pericholecystic fluid. 2. No hydronephrosis in either kidney. No obstructing renal or ureteral calculi. 3. Severe central canal stenosis L4-5. This could be followed up with MRI. 4. Rectal distention with constipation. Mild splenic flexure and transverse colon constipation. 5. 13 mm incidental RIGHT hepatic cyst. 6. Large esophageal hiatal hernia similar to previous. 7. No other acute findings.
[2023-09-16] MEDS: iohexol 350 mg/mL 500 mL Btl (per mL) IV (14:47)
== END 2023-09-16 14:04 | disposition home or self-care (01) ==
LOC: RAD 14:03
PROVIDERS: PCP Family Medicine; Visit Provider Family Medicine
DX: R10.32 Left lower quadrant pain (principal); K80.20 Calculus of gallbladder without cholecystitis without obstruction; M48.061 Spinal stenosis, lumbar region without neurogenic claudication; K59.00 Constipation, unspecified; K44.9 Diaphragmatic hernia without obstruction or gangrene
CPT/HCPCS: 74177; Q9967

== ENCOUNTER 2023-10-03 04:42 | Emergency (ER) | payer MEDICARE, MEDICAID, SELFPAY ==
[2023-10-03 05:22] VITALS: BP 141/79; PULSE 81; RESP 18; TEMP 36.8; O2SAT 97; BMI 24.8
--- NOTE | 2023-10-03 05:52 | ED_ITS ---
Documented by User: Augustus Baltazar DO 10/03/23 05:54 HPI - Abdominal Pain 2 General: Chief Complaint: Abdominal Pain Stated Complaint: Left Side Pain Time Seen by Provider: 10/03/23 04:45 History of Present Illness: Patient presents to the ER with complaints of lower left quadrant abdominal pain. Patient states this been going on for about a month. Patient stated she saw her primary care doctor a couple times last week and he ordered a CT scan of her abdomen which showed a blockage and she also had a UTI. He gave her antibiotics and laxatives but she feels he did not give her enough of either one of them to really help. Patient is still having pain in her left lower quadrant. Review of Systems 2 General: Reports: 10 or more systems reviewed and unremarkable except in HPI and below PFSH ED 2 PFSH: Medical History Hypoxemia Flu Bacterial pneumonia Depression Surgical History History of Hx of appendectomy Hx of hysterectomy Family History Mother CAD (coronary artery disease) Father CAD (coronary artery disease) Family/Other Cancer FAMILY HISTORY OF BRCA GENE MUTATION (Z84.81 Social History Smoking and tobacco/nicotine status: never used tobacco/nicotine Alcohol intake: never Marital status: Current occupational status: retired Physical Exam 2 Const: COMMON NORMALS: no acute distress, average body habitus, patient oriented x3, no limitations, healthy appearing, alert and well nourished HENMT: COMMON NORMALS: normocephalic, atraumatic, hearing grossly normal bilaterally, external ears normal, Normal external nose present, moist oral mucous membranes and oropharynx normal HEAD & SCALP: normocephalic and atraumatic NOSE: Normal external nose present EXTERNAL EAR: Yes external ears normal Neck/C-Spine: COMMON NORMALS: full ROM, no lymphadenopathy, supple, no meningeal signs, no JVD and Thyroid normal THYROID: Thyroid normal Chest: COMMONS NORMALS: normal inspection of the chest and normal palpation of entire chest wall Resp: COMMON NORMALS: normal respiratory effort, No retractions, No use of accessory muscles and clear to auscultation bilaterally AUSCULTATION: clear to auscultation bilaterally Cardio: COMMON NORMALS: no JVD, regular rate, regular rhythm, S1 normal heart sound present, S2 normal heart sound present, No gallops present (Cardio), No clicks present (Cardio), No murmurs present (Cardio) and No rub (Cardio) R ATE: regular rate RHYTHM: regular rhythm HEART SOUNDS: S1 normal heart sound present and S2 normal heart sound present GI: COMMON NORMALS: Normal to inspection, nondistended, normoactive bowel sounds present, Soft to palpation, No hepatosplenomegaly present and no masses; negative for non-tender (Mildly tender to palpation left lower quadrant) P ALPATION: Yes Soft to palpation and Yes No hepatosplenomegaly present Neuro: COMMON NORMALS: patient oriented x3 SENSORIUM/ORIENTATION: Yes alert MENINGEAL SIGNS: Yes no meningeal signs Course 2 Vital Signs: Vital signs: Vital Signs Temperature 98.2 F 10/03/23 05:22 Pulse Rate 89 10/03/23 08:03 Respiratory Rate 18 10/03/23 05:22 Blood Pressure 135/92 10/03/23 08:03 Pulse Oximetry 98 10/03/23 08:03 Oxygen Delivery Me thod Room Air 10/03/23 05:22 MDM - Abdominal Pain Differential Diagnosis Likely abdominal pain Lab Data I reviewed the patient's lab results. 10/03/23 05:59 10/03/23 05:59 Labs/Radiology: Laboratory Results WBC 8.82 10^3/uL (3.29-11.43) 10/03/23 05:59 RBC 4.50 10^6/uL (3.85-5.65) 10/03/23 05:59 Hgb 14.60 g/dL (11.27-16.99) 10/03/23 05:59 Hct 43.1 % (36-47) 10/03/23 05:59 MCV 95.8 fl (85-98) 10/03/23 05:59 MCH 32.4 pg (27-33) 10/03/23 05:59 MCHC 33.9 g/dL (30-55) 10/03/23 05:59 RDW 12.4 % (12.1-15.1) 10/03/23 05:59 Plt Count 204 10^3/cmm (157-399) 10/03/23 05:59 MPV 9.8 fL (7.4-10.4) 10/03/23 05:59 Neut % (Auto) 72.1 % 10/03/23 05:59 Lymph % (Auto) 13.9 % 10/03/23 05:59 [place] % (Auto) 7.7 % 10/03/23 05:59 Eos % (Auto) 5.6 % 10/03/23 05:59 Baso % (Auto) 0.5 % 10/03/23 05:59 Neut # (Auto) 6.36 10^3/uL (1.8-7.7) 10/03/23 05:59 Lymph # (Auto) 1.2 10^3/uL (0.8-4.8) 10/03/23 05:59 [place] # (Auto) 0.7 10^3/uL (0.2-0.9) 10/03/23 05:59 Eos # (Auto) 0.5 10^3/uL (0.0-0.8) 10/03/23 05:59 Baso # (Auto) 0.0 10^3/uL (0.0-0.1) 10/03/23 05:59 Nucleated RBC % (auto) 0 % 10/03/23 05:59 Nucleated RBCs # 0.0 /100WBC 10/03/23 05:59 Sodium 141 mmol/L (136-145) 10/03/23 05:59 Potassium 3.9 mmol/L (3.5-5.1) 10/03/23 05:59 Chloride 109 mmol/L (98-107) H 10/03/23 05:59 Carbon Dioxide 23 mmol/L (22-29) 10/03/23 05:59 Anion Gap 12.9 (5-19) 10/03/23 05:59 BUN 10 mg/dL (8-23) 10/03/23 05:59 Creatinine 0.5 mg/dL (0.5-0.9) 10/03/23 05:59 GFR Calculation Not Reportable 10/03/23 05:59 Glucose 108 mg/dL (65-115) 10/03/23 05:59 Calculated Osmolality 292 mOsm/kg (285-295) 10/03/23 05:59 Calcium 8.8 mg/dL (8.5-10.5) 10/03/23 05:59 Magnesium 1.8 mg/dL (1.7-2.3) 10/03/23 05:59 Total Bilirubin 0.4 mg/dL (0.15-1.2) 10/03/23 05:59 AST 19 U/L (0-32) 10/03/23 05:59 ALT 10 U/L (0-33) 10/03/23 05:59 Alkaline Phosphatase 78 U/L (35-105) 10/03/23 05:59 Total Protein 6.1 g/dL (6.6-8.7) L 10/03/23 05:59 Albumin 3.5 g/dL (3.5-5.2) 10/03/23 05:59 Globulin 2.6 g/dL (1.3-4.6) 10/03/23 05:59 Lipase 27 U/L (13-60) 10/03/23 05:59 Urine Color Yellow (Yellow) 10/03/23 07:12 Urine Appearance Cloudy (CLEAR) A 10/03/23 07:12 Urine pH 8 (5-7) H 10/03/23 07:12 Ur Specific [place] 1.010 (1.005-1.030) 10/03/23 07:12 Urine Protein Neg (Negative) 10/03/23 07:12 Urine Glucose (UA) Norm (Normal) 10/03/23 07:12 Urine Ketones Negative (Negative) 10/03/23 07:12 Urine Blood Neg (Negative) 10/03/23 07:12 Urine Nitrate Positive (Negative) H 10/03/23 07:12 Urine Bilirubin Neg (Negative) 10/03/23 07:12 Prot Sulfosalicylic Acd Positive (Negative) 10/03/23 07:12 Urine Urobilinogen Neg mg/dL (Negative) 10/03/23 07:12 Ur Leukocyte Esterase Trace (Negative) H 10/03/23 07:12 Urine RBC 0-4 /hpf (0-2) H 10/03/23 07:12 Urine WBC 10-15 /hpf (0-5) H 10/03/23 07:12 Ur Squamous Epith Cells 0-4 /hpf (0-5) H 10/03/23 07:12 Ur Transition Epith Cell 0-4 /hpf 10/03/23 07:12 Amorphous Sediment 2+ /hpf 10/03/23 07:12 Urine Bacteria 3+ /hpf (NONE) H 10/03/23 07:12 Urine Mucus Trace /hpf 10/03/23 07:12 XR interpretation done by ED provider, pending radiology final review Discharge Plan Discharge Patient Disposition: Home Clinical Impression: Cystitis, Constipation Condition: Stable Prescriptions: New Macrobid 100 mg capsule 100 mg PO BID 7 Days Qty: 14 0RF Rx Instructions: must administer with a meal/food lactulose 20 gram/30 mL solution 20 g PO Q2H 1 Days Qty: 360 0RF Rx Instructions: until desired laxative effect No Action celecoxib 200 mg capsule 200 mg PO BID sertraline 100 mg tablet 100 mg PO DAILY levothyroxine 25 mcg tablet See Rx Instructions .ROUTE .COMPLEX Rx Instructions: 25 MCG PO DAILY ON SATURDAY THROUGH SATURDAY AND 37.5 MCG TAB ON SAT AND SUN raloxifene 60 mg tablet 60 mg PO DAILY rosuvastatin 20 mg tablet 20 mg PO QPM polyethylene glycol 3350 [Miralax] 17 gram/dose powder 17 g PO DAILY PRN (Reason: constipation) Qty: 119 0RF calcium-vitamin D3-vitamin K 500-500-40 mg-unit-mcg Tablet,Chewable 1 - 2 tab PO DAILY Myrbetriq 50 mg tablet extended release 24 hr 50 mg PO BEDTIME clopidogrel 75 mg tablet 75 mg PO DAILY Discharge Orders: Discharge ED (Routine); Ordered 10/03/23 Ordered By: Miguel Wong Referrals: Gordo Enciso MD [Primary Care Provider] - Discharge Diet: Usual diet Discharge Activity: Resume usual activity Patient Instructions: Constipation (ED), Urinary Tract Infection in Women (ED), Opioid Safety, Pain Management Activity Restrictions/Additional Instructions: Thank you for choosing [facility] for your healthcare needs today. Please realize this is an emergency room and that we are providing you with a medical screening exam and this may not be complete and all inclusive of all the testing and or work up that you may need to determine your ailment or severity of your illness. It is very important that you follow up as instructed or that you return to the Emergency Department should you have concerns or if your condition changes or worsens in any way. Sign Out Sign Out Data: Patient Sign Out occurred on 10/03/23 at 06:50. Patient's care was discussed, and care was transferred from Augustus Baltazar DO to Miguel Wong DO. Coding Level of Care Code ED Credit Risk Modeler for Chg Fwd Documented by User: Miguel Wong DO 10/03/23 16:01 HPI - Abdominal Pain 2 General: Chief Complaint: Abdominal Pain Stated Complaint: Left Side Pain Time Seen by Provider: 10/03/23 04:45 PFSH ED 2 PFSH: Medical History Hypoxemia Flu Bacterial pneumonia Depression Surgical History History of Hx of appendectomy Hx of hysterectomy Family History Mother CAD (coronary artery disease) Father CAD (coronary artery disease) Family/Other Cancer FAMILY HISTORY OF BRCA GENE MUTATION (Z84.81 Social History Smoking and tobacco/nicotine status: never used tobacco/nicotine Alcohol intake: never Marital status: Current occupational status: retired Course 2 Vital Signs: Vital signs: Vital Signs Temperature 98.2 F 10/03/23 05:22 Pulse Rate 89 10/03/23 08:03 Respiratory Rate 18 10/03/23 05:22 Blood Pressure 135/92 10/03/23 08:03 Pulse Oximetry 98 10/03/23 08:03 Oxygen Delivery Me thod Room Air 10/03/23 05:22 MDM - Abdominal Pain Medical Decision Making 10/03/2023 7:25 AM Care assumed at change of shift. Patient comes in the emergency room initially seen by Dr. Baltazar as continuing abdominal pain. She been seen by her primary care doctor last month had a CT done which showed constipation but no acute pathology that was on September 16 she tried some [id number] laxative since then with minimal results. She denies any dysuria urgency or frequency. On the she had a plain x-ray done of her abdomen, At that time she did not have a significant amount of constipation. She did have difficulty urinating this morning but was able to urinate after she arrived her states she felt much better after she urinated. She denies any medical Cecilia melena hematemesis coffee-ground emesis. No hematuria no fever sweats chills dysuria urgency. She does have most of the discomfort in the left lower quadrant. Initial laboratory test reviewed CBC is unremarkable no clinically significant abnormalities on the BMP. She denies any chest or abdominal pain at this time still some crampy discomfort as she describes it in the left lower quadrant. There was a left nephrolithiasis noted on her previous CT last month. She is not present with typical renal colic symptoms at this time. Urine is pending. UA shows cystitis moderate constipation on the KUB. Will treat for cystitis lactulose for constipation follow-up with primary care Lab Data 10/03/23 05:59 10/03/23 05:59 Labs/Radiology: Laboratory Results WBC 8.82 10^3/uL (3.29-11.43) 10/03/23 05:59 RBC 4.50 10^6/uL (3.85-5.65) 10/03/23 05:59 Hgb 14.60 g/dL (11.27-16.99) 10/03/23 05:59 Hct 43.1 % (36-47) 10/03/23 05:59 MCV 95.8 fl (85-98) 10/03/23 05:59 MCH 32.4 pg (27-33) 10/03/23 05:59 MCHC 33.9 g/dL (30-55) 10/03/23 05:59 RDW 12.4 % (12.1-15.1) 10/03/23 05:59 Plt Count 204 10^3/cmm (157-399) 10/03/23 05:59 MPV 9.8 fL (7.4-10.4) 10/03/23 05:59 Neut % (Auto) 72.1 % 10/03/23 05:59 Lymph % (Auto) 13.9 % 10/03/23 05:59 [place] % (Auto) 7.7 % 10/03/23 05:59 Eos % (Auto) 5.6 % 10/03/23 05:59 Baso % (Auto) 0.5 % 10/03/23 05:59 Neut # (Auto) 6.36 10^3/uL (1.8-7.7) 10/03/23 05:59 Lymph # (Auto) 1.2 10^3/uL (0.8-4.8) 10/03/23 05:59 [place] # (Auto) 0.7 10^3/uL (0.2-0.9) 10/03/23 05:59 Eos # (Auto) 0.5 10^3/uL (0.0-0.8) 10/03/23 05:59 Baso # (Auto) 0.0 10^3/uL (0.0-0.1) 10/03/23 05:59 Nucleated RBC % (auto) 0 % 10/03/23 05:59 Nucleated RBCs # 0.0 /100WBC 10/03/23 05:59 Sodium 141 mmol/L (136-145) 10/03/23 05:59 Potassium 3.9 mmol/L (3.5-5.1) 10/03/23 05:59 Chloride 109 mmol/L (98-107) H 10/03/23 05:59 Carbon Dioxide 23 mmol/L (22-29) 10/03/23 05:59 Anion Gap 12.9 (5-19) 10/03/23 05:59 BUN 10 mg/dL (8-23) 10/03/23 05:59 Creatinine 0.5 mg/dL (0.5-0.9) 10/03/23 05:59 GFR Calculation Not Reportable 10/03/23 05:59 Glucose 108 mg/dL (65-115) 10/03/23 05:59 Calculated Osmolality 292 mOsm/kg (285-295) 10/03/23 05:59 Calcium 8.8 mg/dL (8.5-10.5) 10/03/23 05:59 Magnesium 1.8 mg/dL (1.7-2.3) 10/03/23 05:59 Total Bilirubin 0.4 mg/dL (0.15-1.2) 10/03/23 05:59 AST 19 U/L (0-32) 10/03/23 05:59 ALT 10 U/L (0-33) 10/03/23 05:59 Alkaline Phosphatase 78 U/L (35-105) 10/03/23 05:59 Total Protein 6.1 g/dL (6.6-8.7) L 10/03/23 05:59 Albumin 3.5 g/dL (3.5-5.2) 10/03/23 05:59 Globulin 2.6 g/dL (1.3-4.6) 10/03/23 05:59 Lipase 27 U/L (13-60) 10/03/23 05:59 Urine Color Yellow (Yellow) 10/03/23 07:12 Urine Appearance Cloudy (CLEAR) A 10/03/23 07:12 Urine pH 8 (5-7) H 10/03/23 07:12 Ur Specific [place] 1.010 (1.005-1.030) 10/03/23 07:12 Urine Protein Neg (Negative) 10/03/23 07:12 Urine Glucose (UA) Norm (Normal) 10/03/23 07:12 Urine Ketones Negative (Negative) 10/03/23 07:12 Urine Blood Neg (Negative) 10/03/23 07:12 Urine Nitrate Positive (Negative) H 10/03/23 07:12 Urine Bilirubin Neg (Negative) 10/03/23 07:12 Prot Sulfosalicylic Acd Positive (Negative) 10/03/23 07:12 Urine Urobilinogen Neg mg/dL (Negative) 10/03/23 07:12 Ur Leukocyte Esterase Trace (Negative) H 10/03/23 07:12 Urine RBC 0-4 /hpf (0-2) H 10/03/23 07:12 Urine WBC 10-15 /hpf (0-5) H 10/03/23 07:12 Ur Squamous Epith Cells 0-4 /hpf (0-5) H 10/03/23 07:12 Ur Transition Epith Cell 0-4 /hpf 10/03/23 07:12 Amorphous Sediment 2+ /hpf 10/03/23 07:12 Urine Bacteria 3+ /hpf (NONE) H 10/03/23 07:12 Urine Mucus Trace /hpf 10/03/23 07:12 Discharge Plan Discharge Patient Disposition: Home Clinical Impression: Cystitis, Constipation Condition: Stable Prescriptions: New Macrobid 100 mg capsule 100 mg PO BID 7 Days Qty: 14 0RF Rx Instructions: must administer with a meal/food lactulose 20 gram/30 mL solution 20 g PO Q2H 1 Days Qty: 360 0RF Rx Instructions: until desired laxative effect No Action celecoxib 200 mg capsule 200 mg PO BID sertraline 100 mg tablet 100 mg PO DAILY levothyroxine 25 mcg tablet See Rx Instructions .ROUTE .COMPLEX Rx Instructions: 25 MCG PO DAILY ON SATURDAY THROUGH SATURDAY AND 37.5 MCG TAB ON SAT AND SUN raloxifene 60 mg tablet 60 mg PO DAILY rosuvastatin 20 mg tablet 20 mg PO QPM polyethylene glycol 3350 [Miralax] 17 gram/dose powder 17 g PO DAILY PRN (Reason: constipation) Qty: 119 0RF calcium-vitamin D3-vitamin K 500-500-40 mg-unit-mcg Tablet,Chewable 1 - 2 tab PO DAILY Myrbetriq 50 mg tablet extended release 24 hr 50 mg PO BEDTIME clopidogrel 75 mg tablet 75 mg PO DAILY Discharge Orders: Discharge ED (Routine); Ordered 10/03/23 Ordered By: Miguel Wong Referrals: Gordo Enciso MD [Primary Care Provider] - Discharge Diet: Usual diet Discharge Activity: Resume usual activity Patient Instructions: Constipation (ED), Urinary Tract Infection in Women (ED), Opioid Safety, Pain Management Activity Restrictions/Additional Instructions: Thank you for choosing [facility] for your healthcare needs today. Please realize this is an emergency room and that we are providing you with a medical screening exam and this may not be complete and all inclusive of all the testing and or work up that you may need to determine your ailment or severity of your illness. It is very important that you follow up as instructed or that you return to the Emergency Department should you have concerns or if your condition changes or worsens in any way. Sign Out Sign Out Data: Patient Sign Out occurred on 10/03/23 at 06:50. Patient's care was discussed, and care was transferred from Augustus Baltazar DO to Miguel Wong DO. Coding Level of Care Code ED Credit Risk Modeler for Jud [place]
[2023-10-03 06:05] LABS: Basophils % 0.5 %; Eosinophils # 0.5 10^3/uL (0.0-0.8); Eosinophils % 5.6 %; Hematocrit 43.1 % (36-47); Lymphocytes # 1.2 10^3/uL (0.8-4.8); Lymphocytes % 13.9 %; Mean Corpuscular HGB Conc 33.9 g/dL (30-55); Mean Corpuscular Hemoglobin 32.4 pg (27-33); Mean Corpuscular Volume 95.8 fl (85-98); Mean Platelet Volume 9.8 fL (7.4-10.4); Monocytes # 0.7 10^3/uL (0.2-0.9); Monocytes % 7.7 %; Neutrophils # 6.36 10^3/uL (1.8-7.7); Neutrophils % 72.1 %; Nucleated Red Blood Cells % 0 %; Platelet Count 204 10^3/cmm (157-399); Red Cell Distribution Width 12.4 % (12.1-15.1); White Blood Count 8.82 10^3/uL (3.29-11.43)
[2023-10-03 06:22] LABS: Alanine Aminotransferase 10 U/L (0-33); Albumin Level 3.5 g/dL (3.5-5.2); Alkaline Phosphatase 78 U/L (35-105); Aspartate Amino Transferase 19 U/L (0-32); Blood Urea Nitrogen 10 mg/dL (8-23); Calcium 8.8 mg/dL (8.5-10.5); Carbon Dioxide 23 mmol/L (22-29); Chloride 109 mmol/L (98-107); Creatinine Clr Calc Pharmacy 51.6947; Globulin 2.6 g/dL (1.3-4.6); Glucose 108 mg/dL (65-115); Lipase 27 U/L (13-60); Magnesium 1.8 mg/dL (1.7-2.3); Osmolality Calculated 292 mOsm/kg (285-295); Sodium 141 mmol/L (136-145); Total Bilirubin 0.4 mg/dL (0.15-1.2); Total Protein 6.1 g/dL (6.6-8.7)
[2023-10-03 06:23] LABS: Anion Gap 12.9 (5-19); Potassium 3.9 mmol/L (3.5-5.1)
--- NOTE | 2023-10-03 07:36 | XR_ITS ---
WS: [id number] Acute abdomen series, 10/03/2023 Clinical Data: Abdominal pain/constipation Comparison: [facility], 09/24/2023, Findings: In the chest there are no nodules, masses or effusions. The heart is normal. The pulmonary vascularity is not increased. There is a hiatal hernia behind the heart. The aortic arch and descendi ng thoracic aorta show calcification and tortuosity. No free air is seen beneath the diaphragms. There is a small right upper quadrant calcification overl meg the right kidney. There is air in the small bowel and the colon but no evidence of small bowel o bstruction. There are surgical clips in the region of the bladder. 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 Impression: 1. Atherosclerosis. 2. Moderate generalized ileus. 3. Right upper quadrant calcifications unchanged which could be in the gallbladder or right kidney.
[2023-10-03 07:39] LABS: Add Urine Microscopic? YES; Bilirubin Urine Neg (Negative); Blood Urine Neg (Negative); Glucose Urine UA Norm (Normal); Ketones Urine Negative (Negative); Leukocyte Esterase Urine Trace (Negative); Nitrate Urine Positive (Negative); Protein Urine Neg (Negative); RBC Urine 0-4 /hpf (0-2); Sulfosalicylic Acid Urine Positive (Negative); Urine Appearance Cloudy (CLEAR); Urine Color Yellow (Yellow); Urobilinogen Urine Neg (Negative); pH Urine 8 (5-7)
[2023-10-03 07:40] LABS: Squamous Epithelial Cell Urine 0-4 /hpf (0-5); Transitional Epi Cells Urine 0-4 /hpf
[2023-10-03 07:41] LABS: Add Urine Culture? Yes; Amorphous Sediment Urine 2+ /hpf; Bacteria Urine 3+ /hpf; Mucus Urine TRACE /hpf
[2023-10-03 08:03] VITALS: BP 135/92; PULSE 89; O2SAT 98
== END 2023-10-03 08:11 | disposition home or self-care (01) ==
PROVIDERS: Emergency Medicine; Emergency Provider Family Medicine; PCP Family Medicine
DX: N30.90 Cystitis, unspecified without hematuria (principal); K59.00 Constipation, unspecified; Z79.02 Long term (current) use of antithrombotics/antiplatelets
CPT/HCPCS: 36415; 74022; 80053; 81001; 83690; 83735; 85025; 87077; 87086; 87186; 99284

== ENCOUNTER 2023-11-08 06:00 | Outpatient (CLI) | payer MEDICARE, MEDICAID, SELFPAY | END 2023-11-08 23:59 | disposition home or self-care (01) | LOC: SOT 11-11 09:11 | PROVIDERS: PCP Family Medicine; Visit Provider Student in an Organized Health Care Education/Training Program | DX: Z46.89 Encounter for fitting and adjustment of other specified devices (principal); S69.91XD Unspecified injury of right wrist, hand and finger(s), subsequent encounter; W19.XXXD Unspecified fall, subsequent encounter | CPT/HCPCS: 25600; 99204; L3982 ==

== ENCOUNTER → 2023-11-08 09:50 | Outpatient (BNVA) | payer MEDICARE, MEDICAID, SELFPAY | PROVIDERS: PCP Family Medicine; Visit Provider Student in an Organized Health Care Education/Training Program | DX: S52.501A Unspecified fracture of the lower end of right radius, initial encounter for closed fracture; W10.9XXA Fall (on) (from) unspecified stairs and steps, initial encounter; Z46.89 Encounter for fitting and adjustment of other specified devices; S69.91XD Unspecified injury of right wrist, hand and finger(s), subsequent encounter; W19.XXXD Unspecified fall, subsequent encounter | CPT/HCPCS: 25600; 73110; 99204; L3982 ==

== ENCOUNTER → 2024-01-02 13:03 | Outpatient (BNVA) | payer MEDICARE, MEDICAID, SELFPAY | PROVIDERS: PCP Family Medicine; Visit Provider Physician Assistant | DX: S52.501D Unspecified fracture of the lower end of right radius, subsequent encounter for closed fracture with routine healing; X58.XXXD Exposure to other specified factors, subsequent encounter; Z46.89 Encounter for fitting and adjustment of other specified devices | CPT/HCPCS: 73110 ==

== ENCOUNTER 2024-01-02 14:12 | Outpatient (CLI) | payer MEDICARE, MEDICAID, SELFPAY | END 2024-01-02 14:13 | disposition home or self-care (01) | LOC: SPT 14:13 | PROVIDERS: PCP Family Medicine; Visit Provider Physician Assistant | DX: Z46.89 Encounter for fitting and adjustment of other specified devices (principal); S52.501D Unspecified fracture of the lower end of right radius, subsequent encounter for closed fracture with routine healing; X58.XXXD Exposure to other specified factors, subsequent encounter | CPT/HCPCS: 97760; L3908 ==